=== PATIENT | female | born 1930 | race Caucasian/White ===

== ENCOUNTER 2019-02-11 15:57 | Inpatient (IN) | payer BC ==
--- NOTE | 2019-02-11 16:57 | PDOC ---
History of Present Illness - General Chief Complaint: Injury Stated Complaint: FALL Time Seen by Provider: 02/11/19 16:56 History Source: Patient Exam Limitations: No Limitations - History of Present Illness Initial Comments: 02/11/19 16:56 PCP: Dr. Babb Source: Pt and Daughter HPI: 88yo woman pmh HTN and arthritis (ambulates with cane) BIBEMS from home s/ p fall. Patient was found by son sleeping on a blanket on the floor beside her bed around 7AM. He changed her and moved her back to the bed where she slept a bit longer. Around 8:30/9 AM Son / Daughter found her to be "talking strange" with normal voice and pronunciation but frequently off topic. She also had difficulty moving and required help form her son to get up and ambulate to the bathroom. She is unable to say what is limiting her other than arthritis. She does not recall falling or how she ended up on the floor. Currently endorsing no complaints. Specifically, denies any pain, CP, SOB, palpitations, weakness, numbness, tingling, fevers, chills, loss of appetite, changes in bowel habits, urinary symptoms, headache / dizziness / lightheadedness / nausea / vomiting. No recent illnesses, immobilizations, hormonal medications, or sick contacts. All: KNDA Meds: Alieve, Chlorthalidone 50-25, Amlodipine bestyslate 5mg, Lisinopril 40mg, Famotidine 40mg PMH: as above PSH: denies SHx: no smoking / ETOH / Illicits Past History - Travel Traveled outside of the country in the last 30 days: No Close contact w/someone who was outside of country & ill: No - Past Medical History Allergies/Adverse Reactions: Allergies Allergy/AdvReac Type Severity Reaction Status Date / Time No Known Allergies Allergy Verified 07/30/15 17:56 Home Medications: Ambulatory Orders Amlodipine Besylate 5 mg PO DAILY 02/11/19 Famotidine [Pepcid] 40 mg PO DAILY 02/11/19 Lisinopril [Zestril] 40 mg PO DAILY 02/11/19 HTN: Yes - Suicide/Smoking/Psychosocial Hx Smoking Status: No Smoking History: Never smoked Number of Cigarettes Smoked Daily: 0 Hx Alcohol Use: No Review of Systems - Review of Systems Able to Perform ROS?: Yes Is the patient limited Luxem[place]ish proficient: Yes Constitutional: No: Chills, Diaphoresis, Fever, Weakness HEENTM: No: Blurred Vision, Double Vision, Nose Pain, Nose Congestion, Throat Pain, Throat Swelling, Mouth Pain, Difficulty Swallowing Respiratory: Yes: Cough. No: Shortness of Breath, Wheezing Cardiac (ROS): No: Chest Pain, Edema, Irregular Heart Rate, Palpitations, Chest Tightness ABD/GI: No: Constipated, Diarrhea, Nausea, Poor Appetite, Poor Fluid Intake, Vomiting : No: Burning, Dysuria, Discharge, Hematuria Musculoskeletal: No: Back Pain, Joint Pain, Muscle Pain, Muscle Weakness, Neck Pain Integumentary: No: Bruising, Change in Color, Erythema, Rash, Sweating Neurological: No: Headache, Numbness, Tingling, Weakness Psychiatric: No: Anxiety, Depression, Stressors, Emotional Problems, Mood Swings Endocrine: No: Excessive Sweating, Increased Thirst, Increased Urine, Change in Weight Hematologic/Lymphatic: No: Anemia, Blood Clots, Easy Bleeding, Easy Bruising All Other Systems: Reviewed and Negative *Physical Exam - Physical Exam Comments: 02/11/19 17:45 Gen: Elderly woman, appears stated age, no acute distress, conversant and cooperative HEENT: NCAT, EOMI, trachea midline, MMM, poor dentition CV: RRR, nl s1/s2, no murmurs appreciated Pulm: CTA in right lung, left lung field entirely diminished when compared to right, normal WOB, no wheezes / rales / rhonchi Abd: Soft, nontender, nondistended MSK: No tenderness in extremities, normal ROM, normal strength Ext: WWP, no clubbing / cyanosis / edema Pulses: 2+ radial and PT Neuro: Normal strength, sensation to touch present throughout, CN 2-12 intact, normal speech, normal recall, MAEE Heart Score/ECG Review - History History: Slightly suspicious - Electrocardiogram EKG: Non specific repolarization disturbance - Age Age: >/= 65 - Risk Factors Risk Factors Heart Score: Yes Hx Hypertension Based on the list above the patient has:: 1-2 risk factors - Troponin Troponin: </= normal limit - Score Heart Score - Total: 4 - ECG Intrepretation Rhythm: Regular Rhythm Comment:: 02/11/19 18:36 some PVCs and PACs - [place]: Left [place] Deviation - P and LA Delta Wave(s) Present: No WPW: No - QRS Increased Voltage: Precordial Leads - ST and T Non Specific ST-T Wave changes: No Flattened T Waves: No Prolonged Q-T Interval: No - ECG Impressions Normal ECG: No Non-specific ST Elevation: No Ischemic Changes: No Bradycardia: No Torsades sheri Pointes: No WPW: No ED Treatment Course - LABORATORY CBC & Chemistry Diagram: 02/11/19 18:17 02/11/19 18:17 Medical Decision Making - Medical Decision Making 02/11/19 18:04 88yo woman pmh HTN and arthritis (ambulates with cane) BIBEMS from home s/p fall with no focal complaints. History notable for unwitnessed overnight fall with subsequent development of tangential / inappropriate responses and difficulty with ambulation beyond baseline arthritic pains and cane. Exam largely unremarkable except for inability to ambulated with unclear etiology. Concerning for syncope, trauma. DDX includes ACS, bleed, CVA vs TIA, arrhythmia , occult infection, seizure. HEART Score 4 -NCHCT -EKG, CXR -CBC, CMP, Cardiac Profile, UA 02/11/19 18:38 -EKG with LVH and LAD, QRS widening, no priors in EMR, some PVCs and PACs 02/11/19 19:42 -Mild leukocytosis 11.5 -Nl H&H, no anemia -UTI on UA, patient denies symptoms, no suprapubic tenderness 02/11/19 20:31 -Lab called, pt with Troponin of 17 -Repeat EKG unchanged from prior today - deep inverted T waves, could be related to LVH -Patient remains asymptomatic without CP/SOB/N/V or any other complaints -ASA ordered -1g Rocephin for UTI Dispo: Admit Tele 02/11/19 21:23 -Spoke with Dr. Alston, Cardiology. Advised to give heparin if we suspect ACS, not give Heparin if we don't suspect ACS. -Patient reassessed, remains asymptomatic, a bit more demented as the night progressed 02/11/19 23:19 -NSTEMI, Repeat troponin 15 -Lovenox 80mg SQ ordered *DC/Admit/Observation/Transfer Diagnosis at time of Disposition: Elevated troponin, NSTEMI, initial episode of care UTI (urinary tract infection) Qualifiers: Urinary tract infection type: site unspecified Hematuria presence: without hematuria Qualified Code(s): N39.0 - Urinary tract infection, site not specified - Discharge Dispostion Condition at time of disposition: Guarded Decision to Admit order: Yes - Referrals Referrals: Norbert Babb MD [Primary Care Provider] - - Patient Instructions - Post Discharge Activity
--- NOTE | 2019-02-11 17:21 | PDOC ---
Attending Attestation - Resident Resident Name: Mauricio Clark - ED Attending Attestation I have performed the following: I have examined & evaluated the patient, The case was reviewed & discussed with the resident, I agree w/resident's findings & plan, Exceptions are as noted - HPI HPI: 02/11/19 17:19 88 yo female found on the floor by her son at 7 AM today. He found her laying on top of a blanket on the floor. The patient doesn't recall any events leading to her being on the floor - Physicial Exam PE: 02/11/19 21:21 nourished, well-developed conversant, 88-year-old female in no acute distress. Head no scalp lacerations or hematomas appreciated. Dry mucous membranes Neck no cervical midline tenderness. Lungs no crackles or wheezing CVS regular rate and rhythm S1, S2 Abdomen nontender. Skin warm and dry extremities no deformities, she was alert and conversant. She knows her name and her birthdate. However, she doesn't know the year, has complained of chronic lower extremity weakness and uses a walker or cane for ambulation - Medical Decision Making 02/11/19 21:23 88 female found on the floor by her son this morning the pt states that she remembers sitting on the floor at midnight because she was too weak to get into her bed. Patient is not the best historian but has no specific complaints at this time 02/11/19 21:24 head was negative for any acute intracranial pathology. Chest x-ray did not show any infiltrates UA does show urinary tract infection and she was started on antibiotics ekg showed nsr with Deep inverted T waves, V4, V5 and V6 with LVH and some PVCs troponin was markedly elevated at 17 and her CPK was above 2000 We will repeat her troponin now 02/11/19 21:26 pmh HTN,arthritis Dr Javier consulted for cardiology imp fall,nstemi,uti admitted to telemetry ADMIT TO TELE 02/11/19 23:19
[2019-02-11 19:07] LABS: BASO % 0.4 % (0-2.0); EOS % 0.1 % (0-4.5); HEMATOCRIT 41.8 % (32.4-45.2); MCH 31.1 pg (25.7-33.7); MCHC 33.6 g/dl (32.0-36.0); MEAN CELL VOLUME 92.6 fl (80-96); MEAN PLT VOLUME 8.3 fl (7.5-11.1); MONO % 7.8 % (3.8-10.2); NEUT % 81.7 % (42.8-82.8); PLATELET COUNT 250 K/MM3 (134-434); RBC 4.52 M/mm3 (3.60-5.2); RDW 13.5 % (11.6-15.6); WHITE BLOOD COUNT 11.2 K/mm3 (4.0-10.0)
[2019-02-11 19:10] LABS: EPI CELLS 3.8 /HPF (0-5/HPF); HYALINE CASTS 2 /lpf (0-8); URINE APPEARANCE CLOUDY; URINE BACTERIA 2322.2 /hpf (NEGATIVE); URINE BILIRUBIN NEGATIVE (NEGATIVE); URINE COLOR YELLOW; URINE GLUCOSE (UA) NEGATIVE (NEGATIVE); URINE KETONE TRACE (NEGATIVE); URINE LEUK ESTERASE 1+ (NEGATIVE); URINE NITRITE NEGATIVE (NEGATIVE); URINE PROTEIN 2+ (NEGATIVE); URINE RBC 2 /hpf (0-4); URINE UROBILINOGEN 0.2 mg/dL (0.2-1.0); URINE WBC 2 /hpf (0-5)
[2019-02-11 19:55] LABS: ALBUMIN 3.8 g/dl (3.4-5.0); BILIRUBIN,TOTAL 0.5 mg/dL (0.2-1); BLOOD UREA NITROGEN 21.2 mg/dL (7-18); CALCIUM 9.5 mg/dL (8.5-10.1); CREATININE 0.6 mg/dL (0.55-1.3); POTASSIUM 3.2 mmol/L (3.5-5.1); TOT PROT 6.4 g/dl (6.4-8.2)
[2019-02-11] MEDS ORDERED: ASPIRIN 81 MG CHEWABLE TABLETS PO ONE (20:28)
[2019-02-11] MEDS ORDERED: CEFTRIAXONE 1 GM in DEXTROSE 5%-WATER - 100 ML IVPB ONE (20:29)
[2019-02-11 20:38] VITALS: BMI 30.2
[2019-02-11] MEDS ORDERED: CEFTRIAXONE 1 GM/50 ML BAG ONE (20:48)
[2019-02-11] MEDS ORDERED: ASPIRIN 81 MG CHEWABLE TABLETS ONE (20:48)
[2019-02-11] MEDS ORDERED: SODIUM CHLORIDE 0.9% 500 ML INFUS.BAG IV ONE (21:04)
[2019-02-11] MEDS ORDERED: ENOXAPARIN NA (PORCINE) 80 MG/0.8 ML DISP.SYRIN SQ ONE ×2 (23:19→23:40)
--- NOTE | 2019-02-12 02:20 | HP ---
Admitting History and Physical - Primary Care Physician PCP: Norbert Babb - Admission Chief Complaint: Syncope, s/p Fall History of Present Illness: This is a 88 y/o woman from home. Who presents to the ED for syncope, s/p fall. Patient was found on the floor in her bedroom by her son, laying on a blanket. The son reported to the ED that she is confused- not at baseline. History Source: Family Member Limitations to Obtaining History: Clinical Condition - Past Medical History Cardiovascular: Yes: HTN Musculoskeletal: Yes: Osteoarthritis - Smoking History Smoking history: Never smoked Have you smoked in the past 12 months: No Aproximately how many cigarettes per day: 0 - Alcohol/Substance Use Hx Alcohol Use: No - Social History Usual Living Arrangement: Yes: With Child ADL: Family Assistance History of Recent Travel: No Home Medications - Allergies Allergies/Adverse Reactions: Allergies Allergy/AdvReac Type Severity Reaction Status Date / Time No Known Allergies Allergy Verified 07/30/15 17:56 - Home Medications Home Medications: Ambulatory Orders Amlodipine Besylate 5 mg PO DAILY 02/11/19 Famotidine [Pepcid] 40 mg PO DAILY 02/11/19 Lisinopril [Zestril] 40 mg PO DAILY 02/11/19 Family Disease History - Family Disease History Family History: Unable to Obtain Review of Systems Unable to obtain ROS, reason: Clinical Condition Physical Examination Vital Signs: Vital Signs Temperature 98.2 F 02/11/19 16:00 Pulse Rate 72 02/11/19 16:00 Respiratory Rate 18 02/11/19 16:00 Blood Pressure 146/54 L 02/11/19 16:00 O2 Sat by Pulse Oximetry (%) 100 02/11/19 16:00 Constitutional: Yes: No Distress, Calm, Other (Alert to name, month and president) Eyes: Yes: WNL, Conjunctiva Clear, EOM Intact, PERRL HENT: Yes: WNL, Atraumatic, Normocephalic Neck: Yes: WNL, Supple, Trachea Midline Cardiovascular: Yes: Regular Rate and Rhythm, S1, S2 Respiratory: Yes: WNL, Regular, CTA Bilaterally Gastrointestinal: Yes: WNL, Normal Bowel Sounds, Soft Renal/: Yes: Incontinence Breast(s): Yes: WNL Musculoskeletal: Yes: WNL Extremities: Yes: WNL Edema: No Peripheral Pulses WNL: Yes Neurological: Yes: Alert, Confusion, Cran Nerves II-XII Intact ...Motor Strength: WNL Psychiatric: Yes: WNL, Alert Labs: CBC, BMP 02/11/19 18:17 02/11/19 18:17 Laboratory Results - last 24 hr 02/11/19 02/11/19 02/11/19 18:13 18:17 18:17 WBC 11.2 H RBC 4.52 Hgb 14.0 Hct 41.8 MCV 92.6 MCH 31.1 MCHC 33.6 RDW 13.5 Plt Count 250 MPV 8.3 Absolute Neuts (auto) 9.2 H Neutrophils % 81.7 Lymphocytes % 10.0 Monocytes % 7.8 Eosinophils % 0.1 Basophils % 0.4 Nucleated RBC % 0 Sodium 136 Potassium 3.2 L Chloride 99 Carbon Dioxide 28 Anion Gap 9 BUN 21.2 H Creatinine 0.6 Est GFR (CKD-EPI)AfAm 94.32 Est GFR (CKD-EPI)NonAf 81.38 Random Glucose 99 Calcium 9.5 Total Bilirubin 0.5 AST 152 H ALT 42 Alkaline Phosphatase 78 Creatine Kinase 2593 H Creatine Kinase Index 1.6 CK-MB (CK-2) 42.0 H Troponin I 17.00 H* Total Protein 6.4 Albumin 3.8 Urine Color Yellow Urine Appearance Cloudy Urine pH 6.0 Ur Specific [place] 1.019 Urine Protein 2+ H Urine Glucose (UA) Negative Urine Ketones Trace H Urine Blood 1+ H Urine Nitrite Negative Urine Bilirubin Negative Urine Urobilinogen 0.2 Ur Leukocyte Esterase 1+ H Urine WBC (Auto) 2 Urine RBC (Auto) 2 Urine Casts (Auto) 2 U Epithel Cells (Auto) 3.8 Urine Bacteria (Auto) 2322.2 02/11/19 02/11/19 18:17 22:00 WBC RBC Hgb Hct MCV MCH MCHC RDW Plt Count MPV Absolute Neuts (auto) Neutrophils % Lymphocytes % Monocytes % Eosinophils % Basophils % Nucleated RBC % Sodium Potassium Chloride Carbon Dioxide Anion Gap BUN Creatinine Est GFR (CKD-EPI)AfAm Est GFR (CKD-EPI)NonAf Random Glucose Calcium Total Bilirubin AST ALT Alkaline Phosphatase Creatine Kinase 2553 H Creatine Kinase Index Cancelled 1.2 CK-MB (CK-2) Cancelled 32.6 H Troponin I 15.30 H* Total Protein Albumin Urine Color Urine Appearance Urine pH Ur Specific [place] Urine Protein Urine Glucose (UA) Urine Ketones Urine Blood Urine Nitrite Urine Bilirubin Urine Urobilinogen Ur Leukocyte Esterase Urine WBC (Auto) Urine RBC (Auto) Urine Casts (Auto) U Epithel Cells (Auto) Urine Bacteria (Auto) Intake & Output 02/09/19 02/10/19 02/11/19 02/12/19 23:59 23:59 23:59 23:59 Weight 74.843 kg Current Medications Generic Name Dose Route Start Last Admin Trade Name Freq PRN Reason Stop Dose Admin Amlodipine Besylate 5 mg 02/12/19 10:00 Norvasc - PO DAILY JUNIE Aspirin 81 mg 02/12/19 10:00 Asa - PO DAILY JUNIE Enoxaparin Sodium 75 mg 02/12/19 12:00 Lovenox - SQ BID JUNIE Ceftriaxone Sodium 1 gm/ 50 mls @ 100 mls/hr 02/12/19 10:00 Dextrose IVPB DAILY JUNIE Protocol Sodium Chloride 1,000 mls @ 60 mls/hr 02/12/19 05:00 Normal Saline - IV ASDIR JUNIE Lisinopril 40 mg 02/12/19 10:00 Prinivil PO DAILY JUNIE Ranitidine HCl 300 mg 02/12/19 10:00 Zantac - PO DAILY JUNIE Imaging - Results Chest X-ray: Report Reviewed, Image Reviewed Cat Scan: Report Reviewed, Image Reviewed EKG: Image Reviewed Problem List - Problems (1) NSTEMI (non-ST elevated myocardial infarction) Assessment/Plan: Cardiac monitoring EKGs reviewed- SR with PVCs change compared to prior study Troponins x2 elevated but trending down 17~15, will continue to trend Chest Xray reviewed Cardiology consulted by ED resident Lovenox 80mg SQ given in ED Will conitinue Lovenox weight based Echo Lipid Panel EKG in am Code(s): I21.4 - NON-ST ELEVATION (NSTEMI) MYOCARDIAL INFARCTION (2) Elevated troponin Assessment/Plan: see above Code(s): R74.8 - ABNORMAL LEVELS OF OTHER SERUM ENZYMES (3) UTI (urinary tract infection) Assessment/Plan: UA- +1 leukocyte esterase, Bacteria 2322 Urine Culture-pending Rocephin started in ED, will continue Patient is confused not at baseline per patient's family- likely due to UTI Monitor CBC, BMP Monitor vitals Code(s): N39.0 - URINARY TRACT INFECTION, SITE NOT SPECIFIED Qualifiers: Urinary tract infection type: site unspecified Hematuria presence: without hematuria Qualified Code(s): N39.0 - Urinary tract infection, site not specified (4) Fall at home Assessment/Plan: Unwitnessed Head CT- reviewed Tylenol prn Fall Precautions Consider PT eval- gait conditioning Code(s): W19.XXXA - UNSPECIFIED FALL, INITIAL ENCOUNTER; Y92.009 - UNSP PLACE IN UNSP NON-INSTITUT (PRIVATE) RESIDENCE PLACE Qualifiers: Encounter type: subsequent encounter Qualified Code(s): W19.XXXD - Unspecified fall, subsequent encounter; Y92.009 - Unspecified place in unspecified non-institutional (private) residence as the place of occurrence of the external cause (5) Rhabdomyolysis Assessment/Plan: CK 2593 NS bolus given in ED Will trend CK Continue gentle iVF concern for fluid overload Cardiac monitoring Appreciate Cardiology input Code(s): M62.82 - RHABDOMYOLYSIS (6) HTN (hypertension) Assessment/Plan: stable Continue home meds Monitor renal function Code(s): I10 - ESSENTIAL (PRIMARY) HYPERTENSION Qualifiers: Hypertension type: essential hypertension Qualified Code(s): I10 - Essential (primary) hypertension (7) Osteoarthritis Assessment/Plan: stable Tylenol prn Code(s): M19.90 - UNSPECIFIED OSTEOARTHRITIS, UNSPECIFIED SITE Assessment/Plan This is a 88 y/o woman with a PMHx of HTN, OA. Admitted for NSTEMI, Rhabdomyolysis Acute Metabolic Encephalopathy, UTI for further evaluation of their emergent condition. Plan: See Problem List FEN NS@60ml/hr Repleted K, continue to monitor lytes prn Low Na Diet DVT ppx OOB SCDs Continue Lovenox SQ (for NSTEMI) Dispo: Requires Inpatient Care Visit type - Emergency Visit Emergency Visit: Yes ED Registration Date: 02/11/19 Care time: The patient presented to the Emergency Department on the above date and was hospitalized for further evaluation of their emergent condition. - New Patient This patient is new to me today: Yes Date on this admission: 02/11/19 - Critical Care Critical Care patient: No
[2019-02-12] MEDS ORDERED: POTASSIUM CHLORIDE TABS 20 MEQ TABLET.ER (FP) PO ONE ×2 (04:56→05:16)
[2019-02-12] MEDS: SODIUM CHLORIDE 1,000 ML IV SCH ×2 (05:25→17:19)
[2019-02-12 06:55] LABS: BASO % 0.3 % (0-2.0); EOS % 0.2 % (0-4.5); HEMATOCRIT 40.4 % (32.4-45.2); LYMPH % 11.6 % (8-40); MCH 31.7 pg (25.7-33.7); MCHC 34.5 g/dl (32.0-36.0); MEAN CELL VOLUME 91.8 fl (80-96); MEAN PLT VOLUME 8.5 fl (7.5-11.1); NEUT % 79.9 % (42.8-82.8); PLATELET COUNT 240 K/MM3 (134-434); RBC 4.41 M/mm3 (3.60-5.2); RDW 13.5 % (11.6-15.6); WHITE BLOOD COUNT 9.9 K/mm3 (4.0-10.0)
[2019-02-12 07:32] LABS: BLOOD UREA NITROGEN 17.9 mg/dL (7-18); CREATININE 0.5 mg/dL (0.55-1.3); MAGNESIUM 1.4 mg/dL (1.8-2.4); PHOSPHOROUS 2.6 mg/dL (2.5-4.9); POTASSIUM 3.3 mmol/L (3.5-5.1)
[2019-02-12] MEDS ORDERED: CEFTRIAXONE 1 GM in DEXTROSE 5%-WATER - 50 ML IVPB SCH (10:00)
[2019-02-12] MEDS ORDERED: ENOXAPARIN NA (PORCINE) 80 MG/0.8 ML DISP.SYRIN SQ ONE (10:47)
[2019-02-12] MEDS ORDERED: ASPIRIN 81 MG CHEWABLE TABLETS ONE (10:47)
[2019-02-12] MEDS ORDERED: amLODIPine BESYLATE 5 MG TABLET (FP) ONE (10:47)
[2019-02-12] MEDS ORDERED: LISINOPRIL 20 MG TABLET (FP) ONE (10:47)
[2019-02-12] MEDS ORDERED: CEFTRIAXONE 1 GM/50 ML BAG ONE (10:47)
[2019-02-12] MEDS: amLODIPine BESYLATE 5 MG TABLET (FP) PO SCH (11:06)
[2019-02-12] MEDS: LISINOPRIL 20 MG TABLET (FP) PO SCH (11:06)
[2019-02-12] MEDS: ASPIRIN 81 MG CHEWABLE TABLETS PO SCH (11:06)
[2019-02-12] MEDS: RANITIDINE HCL 150 MG TABLET (FP) PO SCH (11:27)
[2019-02-12] MEDS: ENOXAPARIN NA (PORCINE) 80 MG/0.8 ML DISP.SYRIN SQ SCH ×2 (11:30→21:21)
--- NOTE | 2019-02-12 12:57 | PN ---
Progress Note (short form) - Note Progress Note: no chest pain No SOB pt examined in ER Vital Signs - 24 hr 02/11/19 02/11/19 16:00 23:00 Temperature 98.2 F Pulse Rate 72 Pulse Rate [ 79 Radial] Respiratory 18 Rate Blood Pressure 146/54 L Blood Pressure 150/65 [Left Arm] O2 Sat by Pulse 100 Oximetry (%) Current Medications Generic Name Dose Route Start Last Admin Trade Name Freq PRN Reason Stop Dose Admin Amlodipine Besylate 5 mg 02/12/19 10:00 02/12/19 11:06 Norvasc - PO 5 mg DAILY JUNIE Administration Aspirin 81 mg 02/12/19 10:00 02/12/19 11:06 Asa - PO 81 mg DAILY JUNIE Administration Enoxaparin Sodium 75 mg 02/12/19 12:00 02/12/19 11:30 Lovenox - SQ 75 mg BID JUNIE Administration Ceftriaxone Sodium 1 gm/ 50 mls @ 100 mls/hr 02/12/19 10:00 02/12/19 11:06 Dextrose IVPB 100 mls/hr DAILY JUNIE Administration Protocol Sodium Chloride 1,000 mls @ 60 mls/hr 02/12/19 05:00 02/12/19 05:25 Normal Saline - IV 60 mls/hr ASDIR JUNIE Administration Lisinopril 40 mg 02/12/19 10:00 02/12/19 11:06 Prinivil PO 40 mg DAILY JUNIE Administration Ranitidine HCl 300 mg 02/12/19 10:00 02/12/19 11:27 Zantac - PO Not Given DAILY JUNIE Laboratory Results - last 24 hr 02/11/19 02/11/19 02/11/19 18:13 18:17 18:17 WBC 11.2 H RBC 4.52 Hgb 14.0 Hct 41.8 MCV 92.6 MCH 31.1 MCHC 33.6 RDW 13.5 Plt Count 250 MPV 8.3 Absolute Neuts (auto) 9.2 H Neutrophils % 81.7 Lymphocytes % 10.0 Monocytes % 7.8 Eosinophils % 0.1 Basophils % 0.4 Nucleated RBC % 0 Sodium 136 Potassium 3.2 L Chloride 99 Carbon Dioxide 28 Anion Gap 9 BUN 21.2 H Creatinine 0.6 Est GFR (CKD-EPI)AfAm 94.32 Est GFR (CKD-EPI)NonAf 81.38 Random Glucose 99 Calcium 9.5 Phosphorus Magnesium Total Bilirubin 0.5 AST 152 H ALT 42 Alkaline Phosphatase 78 Creatine Kinase 2593 H Creatine Kinase Index 1.6 CK-MB (CK-2) 42.0 H Troponin I 17.00 H* Total Protein 6.4 Albumin 3.8 Triglycerides Cholesterol Total LDL Cholesterol HDL Cholesterol TSH Urine Color Yellow Urine Appearance Cloudy Urine pH 6.0 Ur Specific [place] 1.019 Urine Protein 2+ H Urine Glucose (UA) Negative Urine Ketones Trace H Urine Blood 1+ H Urine Nitrite Negative Urine Bilirubin Negative Urine Urobilinogen 0.2 Ur Leukocyte Esterase 1+ H Urine WBC (Auto) 2 Urine RBC (Auto) 2 Urine Casts (Auto) 2 U Epithel Cells (Auto) 3.8 Urine Bacteria (Auto) 2322.2 02/11/19 02/11/19 02/12/19 18:17 22:00 03:54 WBC RBC Hgb Hct MCV MCH MCHC RDW Plt Count MPV Absolute Neuts (auto) Neutrophils % Lymphocytes % Monocytes % Eosinophils % Basophils % Nucleated RBC % Sodium Potassium Chloride Carbon Dioxide Anion Gap BUN Creatinine Est GFR (CKD-EPI)AfAm Est GFR (CKD-EPI)NonAf Random Glucose Calcium Phosphorus Magnesium Total Bilirubin AST ALT Alkaline Phosphatase Creatine Kinase 2553 H Cancelled Creatine Kinase Index Cancelled 1.2 CK-MB (CK-2) Cancelled 32.6 H Troponin I 15.30 H* Cancelled Total Protein Albumin Triglycerides Cholesterol Total LDL Cholesterol HDL Cholesterol TSH Urine Color Urine Appearance Urine pH Ur Specific [place] Urine Protein Urine Glucose (UA) Urine Ketones Urine Blood Urine Nitrite Urine Bilirubin Urine Urobilinogen Ur Leukocyte Esterase Urine WBC (Auto) Urine RBC (Auto) Urine Casts (Auto) U Epithel Cells (Auto) Urine Bacteria (Auto) 02/12/19 02/12/19 06:00 06:00 WBC 9.9 RBC 4.41 Hgb 14.0 Hct 40.4 MCV 91.8 MCH 31.7 MCHC 34.5 RDW 13.5 Plt Count 240 MPV 8.5 Absolute Neuts (auto) 7.9 Neutrophils % 79.9 Lymphocytes % 11.6 Monocytes % 8.0 Eosinophils % 0.2 D Basophils % 0.3 Nucleated RBC % 0 Sodium 136 Potassium 3.3 L Chloride 99 Carbon Dioxide 28 Anion Gap 9 BUN 17.9 Creatinine 0.5 L Est GFR (CKD-EPI)AfAm 100.15 Est GFR (CKD-EPI)NonAf 86.41 Random Glucose 94 Calcium 9.0 Phosphorus 2.6 Magnesium 1.4 L Total Bilirubin AST ALT Alkaline Phosphatase Creatine Kinase 2266 H Creatine Kinase Index 1.0 CK-MB (CK-2) 24.3 H Troponin I 9.75 H* Total Protein Albumin Triglycerides 134 Cholesterol 170 Total LDL Cholesterol 106 H HDL Cholesterol 39 L TSH 1.65 Urine Color Urine Appearance Urine pH Ur Specific [place] Urine Protein Urine Glucose (UA) Urine Ketones Urine Blood Urine Nitrite Urine Bilirubin Urine Urobilinogen Ur Leukocyte Esterase Urine WBC (Auto) Urine RBC (Auto) Urine Casts (Auto) U Epithel Cells (Auto) Urine Bacteria (Auto) S1 S2 Irregular Lungs decreased Abd- soft, NT No edema PLAN IV antibiotics for UTI urine cultures not done Iv fluids Tele monitoring cardiology eval Cardiac enzymes trending down On Lovenox full dose Echo Problem List - Problems (1) Dementia Code(s): F03.90 - UNSPECIFIED DEMENTIA WITHOUT BEHAVIORAL DISTURBANCE (2) Elevated troponin Code(s): R74.8 - ABNORMAL LEVELS OF OTHER SERUM ENZYMES (3) Fall at home Code(s): W19.XXXA - UNSPECIFIED FALL, INITIAL ENCOUNTER; Y92.009 - UNSP PLACE IN UNSP NON-INSTITUT (PRIVATE) RESIDENCE PLACE Qualifiers: Encounter type: subsequent encounter Qualified Code(s): W19.XXXD - Unspecified fall, subsequent encounter; Y92.009 - Unspecified place in unspecified non-institutional (private) residence as the place of occurrence of the external cause (4) HTN (hypertension) Code(s): I10 - ESSENTIAL (PRIMARY) HYPERTENSION Qualifiers: Hypertension type: essential hypertension Qualified Code(s): I10 - Essential (primary) hypertension (5) Hypercholesterolemia Code(s): E78.00 - PURE HYPERCHOLESTEROLEMIA, UNSPECIFIED (6) NSTEMI (non-ST elevated myocardial infarction) Code(s): I21.4 - NON-ST ELEVATION (NSTEMI) MYOCARDIAL INFARCTION
[2019-02-12] MEDS ORDERED: CEFTRIAXONE 1,000 MG in DEXTROSE 5%-WATER - 50 ML IVPB SCH ×2 (13:00→13:40)
--- NOTE | 2019-02-12 13:03 | EKG ---
Test Reason : Blood Pressure : / mmHG Vent. Rate : 072 BPM Atrial Rate : 072 BPM P-R Int : 164 ms QRS Dur : 132 ms QT Int : 480 ms P-R-T Axes : 066 -56 269 degrees QTc Int : 525 ms SINUS RHYTHM WITH PREMATURE SUPRAVENTRICULAR COMPLEXES LEFT AXIS DEVIATION LEFT VENTRICULAR HYPERTROPHY WITH QRS WIDENING AND REPOLARIZATION ABNORMALITY ABNORMAL ECG WHEN COMPARED WITH ECG OF 11-FEB-2019 17:55, PREMATURE VENTRICULAR COMPLEXES ARE NO LONGER PRESENT Confirmed by MD Dilma, Mainor ([id number]) on 02/12/2019 1:02:44 PM Referred By: Confirmed By:Mainor Perera MD
--- NOTE | 2019-02-12 13:05 | EKG ---
Test Reason : Blood Pressure : / mmHG Vent. Rate : 075 BPM Atrial Rate : 075 BPM P-R Int : 166 ms QRS Dur : 132 ms QT Int : 470 ms P-R-T Axes : 060 -58 -81 degrees QTc Int : 524 ms SINUS RHYTHM WITH OCCASIONAL PREMATURE VENTRICULAR COMPLEXES AND PREMATURE ATRIAL COMPLEXES LEFT AXIS DEVIATION LEFT VENTRICULAR HYPERTROPHY WITH QRS WIDENING AND REPOLARIZATION ABNORMALITY ABNORMAL ECG MARKED T WAVE ABNORMALITY, CONSIDER INFERIOR ISCHEMIA T WAVE ABNORMALITY, CONSIDER LATERAL ISCHEMIA Confirmed by MD Dilma, Mainor ([id number]) on 02/12/2019 1:05:41 PM Referred By: Confirmed By:Mainor Perera MD
--- NOTE | 2019-02-12 13:25 | ECHO ---
Version: 1 Name: BEL GUTIERREZ Exam: Adult Echocardiogram Study Date: 02/12/2019, 10:15 AM Age: 88 Years Doppler Measurements & Calculations MV E max jj: 83.9 cm/sec Med E/e': 21.1 MV A max jj: 127.3 cm/sec Med Peak E' Jj: 4.0 cm/sec MV E/A: 0.66 Lat E/e': 25.4 Lat Peak E' Jj: 3.3 cm/sec MR max P.5 mmHg Ao max P.3 mmHg LV V1 mean: 46.5 cm/sec Ao mean P.5 mmHg LV V1 mean P.25 mmHg Ao V2 max: 135.3 cm/sec AI P1/2t: 503.6 msec TR max jj: 585.0 cm/sec TR max P.9 mmHg Procedure A complete two-dimensional transthoracic echocardiogram was performed (2D, M-mode, Doppler and color flow Doppler). No M Mode measurements obtained. The study was technically difficult with many images bein g suboptimal in quality. Left Ventricle Ejection Fraction = 50%. E/A reversal consistent with but not diagnostic of poor LV compliance. Sept al motion is consistent with conduction abnormality. Right Ventricle The right ventricle is normal in size and function. Atria The left atrium is not well visualized. Right atrium not well visualized. Mitral Valve The mitral valve is not well visualized. There is trace mitral regurgitation. Tricuspid Valve The tricuspid valve is not well visualized. There is trace tricuspid regurgitation. There was insuff icient TR detected to calculate RV systolic pressure. Aortic Valve There is mild aortic valve thickening. Pulmonic Valve The pulmonic valve is not well visualized. Great Vessels The aortic root is not well visualized. Pericardium/Pleura There is no pericardial effusion. There is no pleural effusion. Summary Statements The study was technically difficult with many images being suboptimal in quality. Septal motion is consistent with conduction abnormality. Ejection Fraction = 50%. There is trace mitral regurgitation. There is trace tricuspid regurgitation. There was insufficient TR detected to calculate RV systolic pressure. There is mild aortic valve thickening. MD Blanco 02/12/2019, 12:24 PM Sade Ordering Physician: Collin Quevedo Referring Physician: COLLIN QUEVEDO Performed By: Josefa Kim
--- NOTE | 2019-02-12 14:02 | CON.CARD ---
Consult Consult Specialty:: Cardiology Referred by:: Hospitalist Reason for Consultation:: Cardiac evaluation - History of Present Illness Chief Complaint: S/P Fall ?LOC History of Present Illness: Patient is an 88 year old female with underlying history of HTN and osteoarthritis who presented after a fall found on the floor by her son. He put her back to bed and she fell asleep. She was found by her daughter a little later in the morning to be talking strange and having difficulty ambulating. She was brought into the hospital by ambulance. She is awake but is not able to give a history and does not recall earlier events. She denies chest pain, shortness of breath or palpitations. She denies fever or chills. She denies nausea, vomiting, diarrhea or abdominal pain. She denies headache or lightheadedness. She is awaiting echocardiography this morning. Of note troponin was elevated to 17 decreased to 15.3 and then 9.75. - History Source History Provided By: Medical Record Limitations to Obtaining History: Clinical Condition - Past Medical History Cardio/Vascular: Yes: HTN Musculoskeletal: Yes: Osteoarthritis - Alcohol/Substance Use Hx Alcohol Use: No - Smoking History Smoking history: Never smoked Have you smoked in the past 12 months: No Aproximately how many cigarettes per day: 0 - Social History ADL: Family Assistance History of Recent Travel: No Home Medications - Allergies Allergies/Adverse Reactions: Allergies Allergy/AdvReac Type Severity Reaction Status Date / Time No Known Allergies Allergy Verified 07/30/15 17:56 - Home Medications Home Medications: Ambulatory Orders Amlodipine Besylate 5 mg PO DAILY 02/11/19 Famotidine [Pepcid] 40 mg PO DAILY 02/11/19 Lisinopril [Zestril] 40 mg PO DAILY 02/11/19 Family Disease History - Family Disease History Family History: Unable to Obtain Review of Systems Unable to obtain ROS, reason: Unable to obtain fully - Review of Systems Cardiovascular: denies: Chest Pain, Palpitations, Shortness of Breath Gastrointestinal: denies: Abdominal Pain, Diarrhea, Melena, Nausea, Rectal Bleeding, Vomiting Neurological: denies: Dizziness, Headache, Seizure Vital Signs: Vital Signs Temperature 98.2 F 02/11/19 16:00 Pulse Rate 79 02/11/19 23:00 Respiratory Rate 18 02/11/19 16:00 Blood Pressure 150/65 02/11/19 23:00 O2 Sat by Pulse Oximetry (%) 100 02/11/19 16:00 Neck: Yes: Supple Respiratory: Yes: Diminished Gastrointestinal: Yes: Normal Bowel Sounds, Soft. No: Tenderness Cardiovascular: Yes: Regular Rate and Rhythm JVD: No PMI: Non-Displaced Heart Sounds: Yes: S1, S2 Murmur: Yes: Systolic Murmur, Grade 1 Edema: No - Other Data Labs, Other Data: CBC, BMP 02/12/19 06:00 02/12/19 06:00 Troponin, BNP 02/11/19 02/11/19 02/12/19 18:17 22:00 03:54 Troponin I 17.00 H* 15.30 H* Cancelled 02/12/19 06:00 Troponin I 9.75 H* Sinus rhythm with APC and VPC Echo: Report Reviewed Imaging - Results Chest X-ray: Report Reviewed (Unremarkable) Cat Scan: Report Reviewed (Head CT unremarkable) EKG: Report Reviewed Problem List - Problems (1) Dementia Code(s): F03.90 - UNSPECIFIED DEMENTIA WITHOUT BEHAVIORAL DISTURBANCE (2) Elevated troponin Code(s): R74.8 - ABNORMAL LEVELS OF OTHER SERUM ENZYMES (3) HTN (hypertension) Code(s): I10 - ESSENTIAL (PRIMARY) HYPERTENSION Qualifiers: Hypertension type: essential hypertension Qualified Code(s): I10 - Essential (primary) hypertension (4) NSTEMI (non-ST elevated myocardial infarction) Code(s): I21.4 - NON-ST ELEVATION (NSTEMI) MYOCARDIAL INFARCTION (5) Osteoarthritis Code(s): M19.90 - UNSPECIFIED OSTEOARTHRITIS, UNSPECIFIED SITE (6) UTI (urinary tract infection) Code(s): N39.0 - URINARY TRACT INFECTION, SITE NOT SPECIFIED Qualifiers: Urinary tract infection type: site unspecified Hematuria presence: without hematuria Qualified Code(s): N39.0 - Urinary tract infection, site not specified (7) Hypercholesterolemia Code(s): E78.00 - PURE HYPERCHOLESTEROLEMIA, UNSPECIFIED (8) Rhabdomyolysis Code(s): M62.82 - RHABDOMYOLYSIS Assessment/Plan 1. Elevated troponin suggests NSTEMI with underlying CAD 2. ? Syncope vs. mechanical fall 3. HTN 4. Organic brain/dementia 5. Osteoarthritis 6. Elevated CPK suggests rhabdomyolisis 7. Hypercholesterolemia 8. Probable UTI PLAN: 1. Trend troponin currently decreasing 2. Agree with Lovenox for now 3. Continue Prinivil and Amlodipine as tolerated 4. Add low dose beta natty and uptitrate 5. ASA 6. Statin therapy 7. Echocardiography report noted 8. In view of advanced age, conservative management recommended 9. Empiric antibiotic coverage 10. Hydration Further plans are to follow Krish Garcia MD
[2019-02-12] MEDS ORDERED: POTASSIUM CHLORIDE ORAL LIQUID 20 MEQ/15 ML PO ONE (17:00)
[2019-02-12] MEDS ORDERED: MAGNESIUM SULF 50% (8.12 MEQ/2 ML-1 GM VIAL) IVPB ONE (17:00)
[2019-02-12] MEDS: ATORVASTATIN CA 20 MG TABLET (FP) PO SCH (21:21)
[2019-02-13 06:18] LABS: MEAN PLT VOLUME 8.6 fl (7.5-11.1)
[2019-02-13 06:50] LABS: HEMATOCRIT 41.7 % (32.4-45.2); HEMOGLOBIN 14.4 GM/dL (10.7-15.3); MCH 31.7 pg (25.7-33.7); MCHC 34.5 g/dl (32.0-36.0); MEAN CELL VOLUME 91.7 fl (80-96); PLATELET COUNT 232 K/MM3 (134-434); RBC 4.55 M/mm3 (3.60-5.2); RDW 13.5 % (11.6-15.6)
[2019-02-13 06:51] LABS: ALBUMIN 3.6 g/dl (3.4-5.0); BILIRUBIN,TOTAL 0.6 mg/dL (0.2-1); CALCIUM 9.2 mg/dL (8.5-10.1); CREATININE 0.5 mg/dL (0.55-1.3); POTASSIUM 3.4 mmol/L (3.5-5.1); TOT PROT 6.4 g/dl (6.4-8.2)
[2019-02-13] MEDS: SODIUM CHLORIDE 1,000 ML IV SCH (06:57)
[2019-02-13] MEDS ORDERED: PT OWN MED DRAWER 7, Y5N ONE (10:01)
[2019-02-13] MEDS ORDERED: DEXTROSE 5%-WATER - 50 ML IVPB ONE (10:02)
[2019-02-13] MEDS ORDERED: cefTRIAXone SODIUM 1 GM VIAL ONE (10:02)
[2019-02-13] MEDS: METOPROLOL TARTRATE 25 MG TABLET (FP) PO SCH ×2 (10:15→21:59)
[2019-02-13] MEDS: ENOXAPARIN NA (PORCINE) 80 MG/0.8 ML DISP.SYRIN SQ SCH (10:15)
[2019-02-13] MEDS: LISINOPRIL 20 MG TABLET (FP) PO SCH (10:15)
[2019-02-13] MEDS: RANITIDINE HCL 150 MG TABLET (FP) PO SCH (10:16)
[2019-02-13] MEDS: ASPIRIN 81 MG CHEWABLE TABLETS PO SCH (10:16)
[2019-02-13] MEDS: amLODIPine BESYLATE 5 MG TABLET (FP) PO SCH (10:16)
[2019-02-13] MEDS: CEFTRIAXONE 1 GM in DEXTROSE 5%-WATER - 50 ML IVPB SCH (10:16)
--- NOTE | 2019-02-13 10:38 | PN ---
Progress Note, Physician History of Present Illness: Denies chest pain, dyspnea, near or true syncope or palpitations. Episodes of PAF with RVR. - Current Medication List Current Medications: Active Medications Amlodipine Besylate (Norvasc -) 5 mg PO DAILY [facility] Last Admin: 02/13/19 10:16 Dose: 5 mg Aspirin (Asa -) 81 mg PO DAILY [facility] Last Admin: 02/13/19 10:16 Dose: 81 mg Atorvastatin Calcium (Lipitor -) 20 mg PO HS [facility] Last Admin: 02/12/19 21:21 Dose: 20 mg Enoxaparin Sodium (Lovenox -) 75 mg SQ BID [facility] Last Admin: 02/13/19 10:15 Dose: 75 mg Sodium Chloride (Normal Saline -) 1,000 mls @ 60 mls/hr IV ASDIR [facility] Last Admin: 02/13/19 06:57 Dose: 60 mls/hr Ceftriaxone Sodium 1 gm/ (Dextrose) 50 mls @ 100 mls/hr IVPB DAILY@0800 [facility] Last Admin: 02/13/19 10:16 Dose: 100 mls/hr Lisinopril (Prinivil) 40 mg PO DAILY [facility] Last Admin: 02/13/19 10:15 Dose: 40 mg Metoprolol Tartrate (Lopressor -) 25 mg PO BID [facility] Last Admin: 02/13/19 10:15 Dose: 25 mg Ranitidine HCl (Zantac -) 300 mg PO DAILY [facility] Last Admin: 02/13/19 10:16 Dose: 300 mg - Objective Vital Signs: Vital Signs Temperature 98.1 F 02/13/19 05:41 Pulse Rate 88 02/13/19 05:41 Respiratory Rate 16 02/13/19 05:41 Blood Pressure 162/81 02/13/19 05:41 O2 Sat by Pulse Oximetry (%) 94 L 02/12/19 21:00 Constitutional: Yes: No Distress, Calm Neck: Yes: Supple Cardiovascular: Yes: Regular Rate and Rhythm Respiratory: Yes: Regular, Diminished, On Nasal O2 Gastrointestinal: Yes: Soft, Hypoactive Bowel Sounds Edema: No Labs: CBC, BMP 02/13/19 05:10 02/13/19 05:10 - ....Imaging EKG: Report Reviewed (Tele: PAF->SR) Problem List - Problems (1) Elevated troponin Code(s): R74.8 - ABNORMAL LEVELS OF OTHER SERUM ENZYMES (2) Fall at home Code(s): W19.XXXA - UNSPECIFIED FALL, INITIAL ENCOUNTER; Y92.009 - UNSP PLACE IN UNSP NON-INSTITUT (PRIVATE) RESIDENCE PLACE Qualifiers: Encounter type: subsequent encounter Qualified Code(s): W19.XXXD - Unspecified fall, subsequent encounter; Y92.009 - Unspecified place in unspecified non-institutional (private) residence as the place of occurrence of the external cause (3) HTN (hypertension) Code(s): I10 - ESSENTIAL (PRIMARY) HYPERTENSION Qualifiers: Hypertension type: essential hypertension Qualified Code(s): I10 - Essential (primary) hypertension (4) Hypercholesterolemia Code(s): E78.00 - PURE HYPERCHOLESTEROLEMIA, UNSPECIFIED (5) NSTEMI (non-ST elevated myocardial infarction) Code(s): I21.4 - NON-ST ELEVATION (NSTEMI) MYOCARDIAL INFARCTION Assessment/Plan 02/12/2019 Echo: Low normal LVEF 50%, tr MR, TR 1. CAD s/p NSTEMI 2. PAF with RVR-> SR 3. ? Syncope vs. mechanical fall 4. HTN 5. Organic brain/dementia 6. Hypercholesterolemia 7. Probable UTI 8. Microalbminuria PLAN: 1. Troponins currently decreasing 2. Agree with Lovenox with GI protection for now->Eliquis 5 bid 3. Continue Prinivil 40 qd and Amlodipine 5 qd as tolerated 4. Lopressor 25 bid and uptitrate 5. ASA 81 qd and Plavix 75 qd, d/c ASA once on Eliquis 6. Lipitor 20 qd 7. Echocardiography report noted, holter to confirm arrhythmia burden 8. In view of advanced age, conservative management recommended 9. Empiric antibiotic coverage 10. Hydration
[2019-02-13] MEDS: CLOPIDOGREL BISULFATE 75 MG TABLET (FP) PO SCH (12:07)
--- NOTE | 2019-02-13 12:59 | PN ---
Progress Note (short form) - Note Progress Note: no chest pain No SOB feels well seems less confused Vital Signs - 24 hr 02/12/19 02/12/19 02/12/19 14:49 16:04 16:18 Temperature 98.1 F 98.1 F Pulse Rate 91 H Pulse Rate [ 94 H Radial] Respiratory 16 16 16 Rate Blood Pressure 143/94 Blood Pressure 143/88 [Left Arm] O2 Sat by Pulse 95 94 L Oximetry (%) 02/12/19 02/12/19 02/12/19 18:00 21:00 21:18 Temperature 98.6 F 98.1 F Pulse Rate 88 105 H Pulse Rate [ Radial] Respiratory 18 16 16 Rate Blood Pressure 166/74 145/75 Blood Pressure [Left Arm] O2 Sat by Pulse 94 L Oximetry (%) 02/13/19 02/13/19 02/13/19 02:00 05:41 10:00 Temperature 98.1 F 98.1 F 98.3 F Pulse Rate 84 88 84 Pulse Rate [ Radial] Respiratory 16 16 17 Rate Blood Pressure 146/69 162/81 155/80 Blood Pressure [Left Arm] O2 Sat by Pulse Oximetry (%) Current Medications Generic Name Dose Route Start Last Admin Trade Name Freq PRN Reason Stop Dose Admin Amlodipine Besylate 5 mg 02/12/19 10:00 02/13/19 10:16 Norvasc - PO 5 mg DAILY JUNIE Administration Aspirin 81 mg 02/12/19 10:00 02/13/19 10:16 Asa - PO 81 mg DAILY JUNIE Administration Atorvastatin Calcium 20 mg 02/12/19 22:00 02/12/19 21:21 Lipitor - PO 20 mg HS JUNIE Administration Clopidogrel Bisulfate 75 mg 02/13/19 11:00 02/13/19 12:07 Plavix - PO 75 mg DAILY JUNIE Administration Enoxaparin Sodium 75 mg 02/12/19 12:00 02/13/19 10:15 Lovenox - SQ 75 mg BID JUNIE Administration Sodium Chloride 1,000 mls @ 60 mls/hr 02/12/19 05:00 02/13/19 06:57 Normal Saline - IV 60 mls/hr ASDIR JUNIE Administration Ceftriaxone Sodium 1 gm/ 50 mls @ 100 mls/hr 02/12/19 13:41 02/13/19 10:16 Dextrose IVPB 100 mls/hr DAILY@0800 JUNIE Administration Lisinopril 40 mg 02/12/19 10:00 02/13/19 10:15 Prinivil PO 40 mg DAILY JUNIE Administration Metoprolol Tartrate 25 mg 02/13/19 10:00 02/13/19 10:15 Lopressor - PO 25 mg BID JUNIE Administration Potassium Chloride 40 meq 02/13/19 13:00 K-Dur - PO 02/13/19 13:01 ONCE ONE Ranitidine HCl 300 mg 02/12/19 10:00 02/13/19 10:16 Zantac - PO 300 mg DAILY JUNIE Administration Laboratory Results - last 24 hr 02/13/19 02/13/19 05:10 05:10 WBC 7.0 RBC 4.55 Hgb 14.4 Hct 41.7 MCV 91.7 MCH 31.7 MCHC 34.5 RDW 13.5 Plt Count 232 MPV 8.6 Sodium 136 Potassium 3.4 L Chloride 101 Carbon Dioxide 28 Anion Gap 8 BUN 15.0 Creatinine 0.5 L Est GFR (CKD-EPI)AfAm 100.15 Est GFR (CKD-EPI)NonAf 86.41 Random Glucose 97 Calcium 9.2 Total Bilirubin 0.6 AST 102 H ALT 47 Alkaline Phosphatase 75 Total Protein 6.4 Albumin 3.6 Triglycerides 168 H Cholesterol 177 Total LDL Cholesterol 121 H HDL Cholesterol 34 L TSH 1.90 S1 S2 Irregular Lungs decreased Abd- soft, NT No edema PLAN IV antibiotics for UTI urine cultures not done Iv fluids-->dc replace potassium Tele monitoring cardiology eval noted Cardiac enzymes trending down dc Lovenox agree with Eliquis and Plavix medical management for now Problem List - Problems (1) Dementia Code(s): F03.90 - UNSPECIFIED DEMENTIA WITHOUT BEHAVIORAL DISTURBANCE (2) Elevated troponin Code(s): R74.8 - ABNORMAL LEVELS OF OTHER SERUM ENZYMES (3) Fall at home Code(s): W19.XXXA - UNSPECIFIED FALL, INITIAL ENCOUNTER; Y92.009 - UNSP PLACE IN UNSP NON-INSTITUT (PRIVATE) RESIDENCE PLACE Qualifiers: Encounter type: subsequent encounter Qualified Code(s): W19.XXXD - Unspecified fall, subsequent encounter; Y92.009 - Unspecified place in unspecified non-institutional (private) residence as the place of occurrence of the external cause (4) HTN (hypertension) Code(s): I10 - ESSENTIAL (PRIMARY) HYPERTENSION Qualifiers: Hypertension type: essential hypertension Qualified Code(s): I10 - Essential (primary) hypertension (5) Hypercholesterolemia Code(s): E78.00 - PURE HYPERCHOLESTEROLEMIA, UNSPECIFIED (6) NSTEMI (non-ST elevated myocardial infarction) Code(s): I21.4 - NON-ST ELEVATION (NSTEMI) MYOCARDIAL INFARCTION
[2019-02-13] MEDS ORDERED: POTASSIUM CHLORIDE TABS 20 MEQ TABLET.ER (FP) PO ONE (13:00)
[2019-02-13] MEDS: ATORVASTATIN CA 20 MG TABLET (FP) PO SCH (21:59)
[2019-02-13] MEDS: APIXABAN 5 MG TABLET PO SCH (21:59)
[2019-02-14 06:25] LABS: HEMATOCRIT 41.6 % (32.4-45.2); HEMOGLOBIN 14.4 GM/dL (10.7-15.3); MCH 31.7 pg (25.7-33.7); MCHC 34.7 g/dl (32.0-36.0); MEAN CELL VOLUME 91.3 fl (80-96); MEAN PLT VOLUME 8.4 fl (7.5-11.1); PLATELET COUNT 247 K/MM3 (134-434); RBC 4.55 M/mm3 (3.60-5.2); RDW 13.4 % (11.6-15.6); WHITE BLOOD COUNT 7.5 K/mm3 (4.0-10.0)
[2019-02-14 07:09] LABS: BLOOD UREA NITROGEN 10.5 mg/dL (7-18); CALCIUM 9.6 mg/dL (8.5-10.1); CREATININE 0.6 mg/dL (0.55-1.3); POTASSIUM 3.8 mmol/L (3.5-5.1)
[2019-02-14] MEDS: CEFTRIAXONE 1 GM in DEXTROSE 5%-WATER - 50 ML IVPB SCH (09:00)
[2019-02-14] MEDS ORDERED: cefTRIAXone SODIUM 1 GM VIAL ONE (09:28)
[2019-02-14] MEDS ORDERED: DEXTROSE 5%-WATER - 50 ML IVPB ONE (09:29)
[2019-02-14] MEDS: CLOPIDOGREL BISULFATE 75 MG TABLET (FP) PO SCH (09:44)
[2019-02-14] MEDS: amLODIPine BESYLATE 10 MG TABLET (FP) PO SCH (09:44)
[2019-02-14] MEDS: LISINOPRIL 20 MG TABLET (FP) PO SCH (09:45)
[2019-02-14] MEDS: RANITIDINE HCL 150 MG TABLET (FP) PO SCH (09:45)
[2019-02-14] MEDS: APIXABAN 5 MG TABLET PO SCH ×2 (09:45→20:59)
[2019-02-14] MEDS: METOPROLOL TARTRATE 25 MG TABLET (FP) PO SCH (09:45)
--- NOTE | 2019-02-14 10:18 | PN ---
Progress Note, Physician History of Present Illness: Denies chest pain, dyspnea, near or true syncope or palpitations. Episodes of PAF with RVR. She reports chronic GLASS with inclines. - Current Medication List Current Medications: Active Medications Amlodipine Besylate (Norvasc -) 10 mg PO DAILY [facility] Last Admin: 02/14/19 09:44 Dose: 10 mg Apixaban (Eliquis -) 5 mg PO BID [facility] Last Admin: 02/14/19 09:45 Dose: 5 mg Atorvastatin Calcium (Lipitor -) 20 mg PO HS [facility] Last Admin: 02/13/19 21:59 Dose: 20 mg Clopidogrel Bisulfate (Plavix -) 75 mg PO DAILY [facility] Last Admin: 02/14/19 09:44 Dose: 75 mg Sodium Chloride (Normal Saline -) 1,000 mls @ 60 mls/hr IV ASDIR [facility] Last Admin: 02/13/19 06:57 Dose: 60 mls/hr Ceftriaxone Sodium 1 gm/ (Dextrose) 50 mls @ 100 mls/hr IVPB DAILY@0800 [facility] Last Admin: 02/14/19 09:00 Dose: 100 mls/hr Lisinopril (Prinivil) 40 mg PO DAILY [facility] Last Admin: 02/14/19 09:45 Dose: 40 mg Metoprolol Tartrate (Lopressor -) 25 mg PO BID [facility] Last Admin: 02/14/19 09:45 Dose: 25 mg Ranitidine HCl (Zantac -) 300 mg PO DAILY [facility] Last Admin: 02/14/19 09:45 Dose: 300 mg - Objective Vital Signs: Vital Signs Temperature 98.4 F 02/14/19 08:39 Pulse Rate 95 H 02/14/19 08:39 Respiratory Rate 20 02/14/19 08:39 Blood Pressure 161/85 02/14/19 08:39 O2 Sat by Pulse Oximetry (%) 96 02/13/19 20:21 Constitutional: Yes: No Distress, Calm Neck: Yes: Supple Cardiovascular: Yes: Regular Rate and Rhythm Respiratory: Yes: Regular, CTA Bilaterally Gastrointestinal: Yes: Normal Bowel Sounds, Soft Edema: No Labs: CBC, BMP 02/14/19 05:10 02/14/19 05:10 Problem List - Problems (1) Elevated troponin Code(s): R74.8 - ABNORMAL LEVELS OF OTHER SERUM ENZYMES (2) Fall at home Code(s): W19.XXXA - UNSPECIFIED FALL, INITIAL ENCOUNTER; Y92.009 - UNSP PLACE IN UNSP NON-INSTITUT (PRIVATE) RESIDENCE PLACE Qualifiers: Encounter type: subsequent encounter Qualified Code(s): W19.XXXD - Unspecified fall, subsequent encounter; Y92.009 - Unspecified place in unspecified non-institutional (private) residence as the place of occurrence of the external cause (3) HTN (hypertension) Code(s): I10 - ESSENTIAL (PRIMARY) HYPERTENSION Qualifiers: Hypertension type: essential hypertension Qualified Code(s): I10 - Essential (primary) hypertension (4) Hypercholesterolemia Code(s): E78.00 - PURE HYPERCHOLESTEROLEMIA, UNSPECIFIED (5) NSTEMI (non-ST elevated myocardial infarction) Code(s): I21.4 - NON-ST ELEVATION (NSTEMI) MYOCARDIAL INFARCTION Assessment/Plan 02/12/2019 Echo: Low normal LVEF 50%, tr MR, TR 1. CAD s/p NSTEMI 2. PAF with RVR-> SR 3. ? Syncope vs. mechanical fall 4. HTN 5. Organic brain/dementia 6. Hypercholesterolemia 7. Probable UTI 8. Microalbminuria PLAN: 1. Troponins currently decreasing 2. Agree with Lovenox->Eliquis 5 bid with GI protection 3. Continue Prinivil 40 qd and Amlodipine 5 qd as tolerated 4. Increase Lopressor 50 bid and uptitrate 5. Plavix 75 qd, d/nitesh ASA once on Eliquis 6. Lipitor 20 qd 7. Echocardiography report noted, f/u holter to confirm arrhythmia burden 8. In view of advanced age, conservative management recommended, consider Lexiscan Myoview as outpatient for risk stratification 9. Empiric antibiotic coverage 10. Judicious hydration
[2019-02-14] MEDS ORDERED: METOPROLOL TARTRATE 25 MG TABLET (FP) PO ONE (11:41)
[2019-02-14] MEDS ORDERED: SODIUM CHLORIDE 1,000 ML IV SCH (12:30)
--- NOTE | 2019-02-14 13:06 | PN ---
Progress Note (short form) - Note Progress Note: no chest pain No SOB feels well seems same Vital Signs - 24 hr 02/13/19 02/13/19 02/13/19 13:36 14:20 18:00 Temperature 98.8 F 99.4 F Pulse Rate 108 H 87 Respiratory 17 16 16 Rate Blood Pressure 152/81 146/75 O2 Sat by Pulse 94 L Oximetry (%) 02/13/19 02/13/19 02/14/19 20:21 22:05 02:00 Temperature 98.1 F 97.8 F Pulse Rate 107 H 87 Respiratory 16 18 18 Rate Blood Pressure 154/95 149/78 O2 Sat by Pulse 96 Oximetry (%) 02/14/19 02/14/19 02/14/19 05:39 08:39 09:00 Temperature 98.4 F 98.4 F Pulse Rate 103 H 95 H Respiratory 19 20 20 Rate Blood Pressure 148/101 H 161/85 O2 Sat by Pulse 96 Oximetry (%) Current Medications Generic Name Dose Route Start Last Admin Trade Name Freq PRN Reason Stop Dose Admin Amlodipine Besylate 10 mg 02/13/19 13:05 02/14/19 09:44 Norvasc - PO 10 mg DAILY JUNIE Administration Apixaban 5 mg 02/13/19 22:00 02/14/19 09:45 Eliquis - PO 5 mg BID JUNIE Administration Atorvastatin Calcium 20 mg 02/12/19 22:00 02/13/19 21:59 Lipitor - PO 20 mg HS JUNIE Administration Clopidogrel Bisulfate 75 mg 02/13/19 11:00 02/14/19 09:44 Plavix - PO 75 mg DAILY JUNIE Administration Sodium Chloride 1,000 mls @ 60 mls/hr 02/12/19 05:00 02/13/19 06:57 Normal Saline - IV 60 mls/hr ASDIR JUNIE Administration Ceftriaxone Sodium 1 gm/ 50 mls @ 100 mls/hr 02/12/19 13:41 02/14/19 09:00 Dextrose IVPB 100 mls/hr DAILY@0800 JUNIE Administration Sodium Chloride 1,000 mls @ 75 mls/hr 02/14/19 12:30 Normal Saline - IV ASDIR JUNIE Lisinopril 40 mg 02/12/19 10:00 02/14/19 09:45 Prinivil PO 40 mg DAILY JUNIE Administration Metoprolol Tartrate 50 mg 02/14/19 11:41 Lopressor - PO BID JUNIE Ranitidine HCl 300 mg 02/12/19 10:00 02/14/19 09:45 Zantac - PO 300 mg DAILY JUNIE Administration Laboratory Results - last 24 hr 02/14/19 02/14/19 05:10 05:10 WBC 7.5 RBC 4.55 Hgb 14.4 Hct 41.6 MCV 91.3 MCH 31.7 MCHC 34.7 RDW 13.4 Plt Count 247 MPV 8.4 Sodium 138 Potassium 3.8 Chloride 102 Carbon Dioxide 27 Anion Gap 9 BUN 10.5 Creatinine 0.6 Est GFR (CKD-EPI)AfAm 94.32 Est GFR (CKD-EPI)NonAf 81.38 Random Glucose 118 H Calcium 9.6 Creatine Kinase 590 H Creatine Kinase Index 1.3 CK-MB (CK-2) 8.0 H Troponin I 2.57 H* S1 S2 Irregular Lungs decreased Abd- soft, NT No edema PLAN IV antibiotics for UTI urine cultures not done Iv fluids--continue trend CPK cardiology eval noted Cardiac enzymes trending down on Eliquis and Plavix medical management for now Problem List - Problems (1) Dementia Code(s): F03.90 - UNSPECIFIED DEMENTIA WITHOUT BEHAVIORAL DISTURBANCE (2) Elevated troponin Code(s): R74.8 - ABNORMAL LEVELS OF OTHER SERUM ENZYMES (3) Fall at home Code(s): W19.XXXA - UNSPECIFIED FALL, INITIAL ENCOUNTER; Y92.009 - UNSP PLACE IN UNSP NON-INSTITUT (PRIVATE) RESIDENCE PLACE Qualifiers: Encounter type: subsequent encounter Qualified Code(s): W19.XXXD - Unspecified fall, subsequent encounter; Y92.009 - Unspecified place in unspecified non-institutional (private) residence as the place of occurrence of the external cause (4) HTN (hypertension) Code(s): I10 - ESSENTIAL (PRIMARY) HYPERTENSION Qualifiers: Hypertension type: essential hypertension Qualified Code(s): I10 - Essential (primary) hypertension (5) Hypercholesterolemia Code(s): E78.00 - PURE HYPERCHOLESTEROLEMIA, UNSPECIFIED (6) NSTEMI (non-ST elevated myocardial infarction) Code(s): I21.4 - NON-ST ELEVATION (NSTEMI) MYOCARDIAL INFARCTION
--- NOTE | 2019-02-14 15:59 | HOL ---
Hook-up date: 2019-02-13 13:41:00 Duration: 22:17:00 Test Indications: PAF WITH RVR Medications: [id number] QRS complexes 3381 Ventricular ectopics which represent 2 % of total QRS comp. 4317 Supraventricular ectopics which represent 3 % of total QRS comp. * Paced QRS complexs which represent % of total QRS comp. 3 % of Time Classified as Noise VENTRICULAR ECTOPY 2897 Isolated 549 Bigeminal Cycles 147 Couplets 60 Runs 190 Beats in Runs 6 Beats LONGEST at 153 BPM at 07:36:43 2019-02-14 3 Beats FASTEST at 192 BPM at 09:13:28 2019-02-14 SUPRAVENTRICULAR ECTOPY 3305 Isolated 372 Couplets 83 Runs 267 Beats in Runs 10 Beats LONGEST at 150 BPM at 04:17:18 2019-02-14 3 Beats FASTEST at 220 BPM at 07:16:01 2019-02-14 HEART RATES 65 MIN at 00:45:04 2019-02-14 95 AVG 152 MAX at 21:45:57 2019-02-13 LONGEST RR 1.272 secs at 00:26:17 2019-02-14 SCANNED BY ÁLVARO MAGDALENO ON 02/14/19 1. Baseline sr with avg hr 95 and range 65-152. 2. No significant bradycardia/pauses. 3. Frequent pvcs and pacs. 4. Frequent brief atrial runs (longest 10 beats) and brief runs of NSVT (longest 6 beats). 5. No vf, afib, aflutter. 6. No diary submitted. Confirmed by IMELDA SORTO, FRANCISCO ([id number]) on 02/14/2019 3:58:39 PM Referred By: DMITRY BLANCO DR Overread By: FRANCISCO SEGURA MD
[2019-02-14] MEDS: ATORVASTATIN CA 20 MG TABLET (FP) PO SCH (20:59)
[2019-02-14] MEDS: METOPROLOL TARTRATE 50 MG TABLET (FP) PO SCH (20:59)
[2019-02-15 08:07] LABS: BLOOD UREA NITROGEN 11.9 mg/dL (7-18); CALCIUM 9.5 mg/dL (8.5-10.1); CREATININE 0.5 mg/dL (0.55-1.3); POTASSIUM 3.7 mmol/L (3.5-5.1)
[2019-02-15] MEDS ORDERED: cefTRIAXone SODIUM 1 GM VIAL ONE (08:59)
[2019-02-15] MEDS ORDERED: DEXTROSE 5%-WATER - 50 ML IVPB ONE (08:59)
[2019-02-15] MEDS: CEFTRIAXONE 1 GM in DEXTROSE 5%-WATER - 50 ML IVPB SCH (09:45)
[2019-02-15] MEDS: RANITIDINE HCL 150 MG TABLET (FP) PO SCH (09:46)
[2019-02-15] MEDS: amLODIPine BESYLATE 10 MG TABLET (FP) PO SCH (09:46)
[2019-02-15] MEDS: LISINOPRIL 20 MG TABLET (FP) PO SCH (09:46)
[2019-02-15] MEDS: APIXABAN 5 MG TABLET PO SCH (09:46)
[2019-02-15] MEDS: METOPROLOL TARTRATE 50 MG TABLET (FP) PO SCH ×2 (09:46→22:15)
[2019-02-15] MEDS: CLOPIDOGREL BISULFATE 75 MG TABLET (FP) PO SCH (09:46)
--- NOTE | 2019-02-15 11:03 | PN ---
Progress Note (short form) - Note Progress Note: pt seen/ examined chart reviewed awake/ comfortable c/c - itching in back Vital Signs Temp 98.2 F 02/15/19 05:33 Pulse 85 02/15/19 05:33 Resp 18 02/15/19 08:39 BP 155/81 02/15/19 05:33 Pulse Ox 95 02/15/19 08:39 Intake & Output 02/14/19 02/14/19 02/15/19 11:59 23:59 11:59 Intake Total 720 1625 120 Balance 720 1625 120 Intake: IV 720 825 Normal Saline - 1,000 ml 825 @ 75 mls/hr IV ASDIR [facility] Rx#:[id number] SL 720 IVPB 100 Oral 700 120 Other: Voiding Method Diaper Diaper Diaper # Unmeasured Voids Void 3 3 2 Bowel Movement No No # Bowel Movements 1 Active Medications Amlodipine Besylate (Norvasc -) 10 mg PO DAILY [facility] Last Admin: 02/15/19 09:46 Dose: 10 mg Apixaban (Eliquis -) 5 mg PO BID [facility] Last Admin: 02/15/19 09:46 Dose: 5 mg Atorvastatin Calcium (Lipitor -) 20 mg PO HS [facility] Last Admin: 02/14/19 20:59 Dose: 20 mg Clopidogrel Bisulfate (Plavix -) 75 mg PO DAILY [facility] Last Admin: 02/15/19 09:46 Dose: 75 mg Ceftriaxone Sodium 1 gm/ (Dextrose) 50 mls @ 100 mls/hr IVPB DAILY@0800 [facility] Last Admin: 02/15/19 09:45 Dose: 100 mls/hr Sodium Chloride (Normal Saline -) 1,000 mls @ 75 mls/hr IV ASDIR [facility] Last Admin: 02/14/19 17:38 Dose: 75 mls/hr Lisinopril (Prinivil) 40 mg PO DAILY [facility] Last Admin: 02/15/19 09:46 Dose: 40 mg Metoprolol Tartrate (Lopressor -) 50 mg PO BID [facility] Last Admin: 02/15/19 09:46 Dose: 50 mg Ranitidine HCl (Zantac -) 300 mg PO DAILY [facility] Last Admin: 02/15/19 09:46 Dose: 300 mg CBC, BMP 02/14/19 05:10 02/15/19 06:06 Microbiology 02/13/19 17:30 Urine Culture - Final Urine - Urine Clean Catch NO GROWTH OBTAINED Physical Exam Awake/ comfortable S1 S2 Irregular Lungs decreased Abd- soft, NT No edema skin-- back reddness PLAN IV antibiotics urine cultures -ve - send late while on abx Iv fluids--continue trend CPK cardiology eval noted Cardiac enzymes trending down on Eliquis and Plavix medical management for now Lotrimin ointment locally Problem List - Problems (1) Dementia Code(s): F03.90 - UNSPECIFIED DEMENTIA WITHOUT BEHAVIORAL DISTURBANCE (2) Elevated troponin Code(s): R74.8 - ABNORMAL LEVELS OF OTHER SERUM ENZYMES (3) Fall at home Code(s): W19.XXXA - UNSPECIFIED FALL, INITIAL ENCOUNTER; Y92.009 - UNSP PLACE IN UNSP NON-INSTITUT (PRIVATE) RESIDENCE PLACE Qualifiers: Encounter type: subsequent encounter Qualified Code(s): W19.XXXD - Unspecified fall, subsequent encounter; Y92.009 - Unspecified place in unspecified non-institutional (private) residence as the place of occurrence of the external cause (4) HTN (hypertension) Code(s): I10 - ESSENTIAL (PRIMARY) HYPERTENSION Qualifiers: Hypertension type: essential hypertension Qualified Code(s): I10 - Essential (primary) hypertension (5) Hypercholesterolemia Code(s): E78.00 - PURE HYPERCHOLESTEROLEMIA, UNSPECIFIED (6) NSTEMI (non-ST elevated myocardial infarction) Code(s): I21.4 - NON-ST ELEVATION (NSTEMI) MYOCARDIAL INFARCTION
--- NOTE | 2019-02-15 11:31 | PN ---
Progress Note, Physician History of Present Illness: Denies chest pain, dyspnea, near or true syncope or palpitations. No episodes of PAF with RVR documented on holter. She reports chronic GLASS with inclines. - Current Medication List Current Medications: Active Medications Amlodipine Besylate (Norvasc -) 10 mg PO DAILY [facility] Last Admin: 02/15/19 09:46 Dose: 10 mg Apixaban (Eliquis -) 5 mg PO BID [facility] Last Admin: 02/15/19 09:46 Dose: 5 mg Atorvastatin Calcium (Lipitor -) 20 mg PO HS [facility] Last Admin: 02/14/19 20:59 Dose: 20 mg Clopidogrel Bisulfate (Plavix -) 75 mg PO DAILY [facility] Last Admin: 02/15/19 09:46 Dose: 75 mg Clotrimazole (Lotrimin 1% Cream -) 1 applic TP BID [facility] Ceftriaxone Sodium 1 gm/ (Dextrose) 50 mls @ 100 mls/hr IVPB DAILY@0800 [facility] Last Admin: 02/15/19 09:45 Dose: 100 mls/hr Sodium Chloride (Normal Saline -) 1,000 mls @ 75 mls/hr IV ASDIR [facility] Last Admin: 02/14/19 17:38 Dose: 75 mls/hr Lisinopril (Prinivil) 40 mg PO DAILY [facility] Last Admin: 02/15/19 09:46 Dose: 40 mg Metoprolol Tartrate (Lopressor -) 50 mg PO BID [facility] Last Admin: 02/15/19 09:46 Dose: 50 mg Ranitidine HCl (Zantac -) 300 mg PO DAILY [facility] Last Admin: 02/15/19 09:46 Dose: 300 mg - Objective Vital Signs: Vital Signs Temperature 98.2 F 02/15/19 05:33 Pulse Rate 85 02/15/19 05:33 Respiratory Rate 18 02/15/19 08:39 Blood Pressure 155/81 02/15/19 05:33 O2 Sat by Pulse Oximetry (%) 95 02/15/19 08:39 Constitutional: Yes: No Distress, Calm Neck: Yes: Supple Cardiovascular: Yes: Regular Rate and Rhythm Respiratory: Yes: Regular, CTA Bilaterally Gastrointestinal: Yes: Normal Bowel Sounds, Soft Edema: No Labs: CBC, BMP 02/14/19 05:10 02/15/19 06:06 Problem List - Problems (1) Elevated troponin Code(s): R74.8 - ABNORMAL LEVELS OF OTHER SERUM ENZYMES (2) Fall at home Code(s): W19.XXXA - UNSPECIFIED FALL, INITIAL ENCOUNTER; Y92.009 - UNSP PLACE IN UNSP NON-INSTITUT (PRIVATE) RESIDENCE PLACE Qualifiers: Encounter type: subsequent encounter Qualified Code(s): W19.XXXD - Unspecified fall, subsequent encounter; Y92.009 - Unspecified place in unspecified non-institutional (private) residence as the place of occurrence of the external cause (3) HTN (hypertension) Code(s): I10 - ESSENTIAL (PRIMARY) HYPERTENSION Qualifiers: Hypertension type: essential hypertension Qualified Code(s): I10 - Essential (primary) hypertension (4) Hypercholesterolemia Code(s): E78.00 - PURE HYPERCHOLESTEROLEMIA, UNSPECIFIED (5) NSTEMI (non-ST elevated myocardial infarction) Code(s): I21.4 - NON-ST ELEVATION (NSTEMI) MYOCARDIAL INFARCTION Assessment/Plan 02/12/2019 Echo: Low normal LVEF 50%, tr MR, TR 02/13/2019 Holter: NSR @ 95, range 65-152, no sig bradycardia/pauses, freq PVC, PAC, freq brief atrial runs (longest 10 beats), bried NSVT (longest 6 beats), no VF, afib, aflutter 1. CAD s/p NSTEMI 2. ? Syncope vs. mechanical fall 3. HTN 4. Organic brain/dementia 5. Hypercholesterolemia 6. Probable UTI 7. Microalbminuria PLAN: 1. Troponins currently decreasing 2. Holter excluded PAF 3. Continue Prinivil 40 qd and Amlodipine 5 qd as tolerated 4. Continue Lopressor 50 bid and uptitrate 5. Plavix 75 qd, Lipitor 20 qd, change Eliquis to ASA 81 qd in absence of PAF on Holter 6. In view of advanced age, conservative management recommended, consider Lexiscan Myoview as outpatient for risk stratification 7. Empiric antibiotic coverage 8. D/c hydration, DVT and GI prophylaxis
[2019-02-15] MEDS: CLOTRIMAZOLE 1% CREAM 15 GM TUBE TP SCH ×2 (13:19→22:16)
[2019-02-15] MEDS: ATORVASTATIN CA 20 MG TABLET (FP) PO SCH (22:15)
[2019-02-16] MEDS ORDERED: PT OWN MED DRAWER 7, Y5N ONE (09:51)
[2019-02-16] MEDS ORDERED: DEXTROSE 5%-WATER - 50 ML IVPB ONE (09:52)
[2019-02-16] MEDS ORDERED: cefTRIAXone SODIUM 1 GM VIAL ONE (09:52)
[2019-02-16] MEDS: CEFTRIAXONE 1 GM in DEXTROSE 5%-WATER - 50 ML IVPB SCH (09:55)
[2019-02-16] MEDS: CLOTRIMAZOLE 1% CREAM 15 GM TUBE TP SCH ×2 (09:55→21:59)
[2019-02-16] MEDS: LISINOPRIL 20 MG TABLET (FP) PO SCH (09:55)
[2019-02-16] MEDS: METOPROLOL TARTRATE 50 MG TABLET (FP) PO SCH ×2 (09:56→21:59)
[2019-02-16] MEDS: amLODIPine BESYLATE 10 MG TABLET (FP) PO SCH (09:56)
[2019-02-16] MEDS: ASPIRIN 81 MG CHEWABLE TABLETS PO SCH (09:56)
[2019-02-16] MEDS: CLOPIDOGREL BISULFATE 75 MG TABLET (FP) PO SCH (09:56)
[2019-02-16] MEDS: ENOXAPARIN NA (PORCINE) 40 MG/0.4 ML DISP.SYRIN SQ SCH (09:56)
[2019-02-16] MEDS: RANITIDINE HCL 150 MG TABLET (FP) PO SCH (09:59)
--- NOTE | 2019-02-16 15:12 | PN ---
Progress Note (short form) - Note Progress Note: awake and comfortable. No complaints. feels much better Vital Signs Temp 97.3 F L 02/16/19 14:21 Pulse 96 H 02/16/19 14:21 Resp 20 02/16/19 14:21 BP 152/74 02/16/19 14:21 Pulse Ox 95 02/15/19 21:00 Intake & Output 02/15/19 02/16/19 02/16/19 23:59 11:59 23:59 Intake Total 820 120 Balance 820 120 Intake: IV 10 SL 10 Oral 810 120 Other: Voiding Method Incontinent Incontinent # Unmeasured Voids Void 1 2 Bowel Movement No Active Medications Amlodipine Besylate (Norvasc -) 10 mg PO DAILY [facility] Last Admin: 02/16/19 09:56 Dose: 10 mg Aspirin (Asa -) 81 mg PO DAILY [facility] Last Admin: 02/16/19 09:56 Dose: 81 mg Atorvastatin Calcium (Lipitor -) 20 mg PO HS [facility] Last Admin: 02/15/19 22:15 Dose: 20 mg Clopidogrel Bisulfate (Plavix -) 75 mg PO DAILY [facility] Last Admin: 02/16/19 09:56 Dose: 75 mg Clotrimazole (Lotrimin 1% Cream -) 1 applic TP BID [facility] Last Admin: 02/16/19 09:55 Dose: 1 applic Enoxaparin Sodium (Lovenox -) 40 mg SQ DAILY [facility] Last Admin: 02/16/19 09:56 Dose: 40 mg Ceftriaxone Sodium 1 gm/ (Dextrose) 50 mls @ 100 mls/hr IVPB DAILY@0800 [facility] Last Admin: 02/16/19 09:55 Dose: 100 mls/hr Lisinopril (Prinivil) 40 mg PO DAILY [facility] Last Admin: 02/16/19 09:55 Dose: 40 mg Metoprolol Tartrate (Lopressor -) 50 mg PO BID [facility] Last Admin: 02/16/19 09:56 Dose: 50 mg Ranitidine HCl (Zantac -) 300 mg PO DAILY [facility] Last Admin: 02/16/19 09:59 Dose: 300 mg CBC,CMP WBC 7.5 K/mm3 (4.0-10.0) 02/14/19 05:10 RBC 4.55 M/mm3 (3.60-5.2) 02/14/19 05:10 Hgb 14.4 GM/dL (10.7-15.3) 02/14/19 05:10 Hct 41.6 % (32.4-45.2) 02/14/19 05:10 MCV 91.3 fl (80-96) 02/14/19 05:10 MCH 31.7 pg (25.7-33.7) 02/14/19 05:10 MCHC 34.7 g/dl (32.0-36.0) 02/14/19 05:10 RDW 13.4 % (11.6-15.6) 02/14/19 05:10 Plt Count 247 K/MM3 (134-434) 02/14/19 05:10 MPV 8.4 fl (7.5-11.1) 02/14/19 05:10 Absolute Neuts (auto) 7.9 K/mm3 (1.5-8.0) 02/12/19 06:00 Neutrophils % 79.9 % (42.8-82.8) 02/12/19 06:00 Lymphocytes % 11.6 % (8-40) 02/12/19 06:00 Monocytes % 8.0 % (3.8-10.2) 02/12/19 06:00 Eosinophils % 0.2 % (0-4.5) D 02/12/19 06:00 Basophils % 0.3 % (0-2.0) 02/12/19 06:00 Nucleated RBC % 0 % (0-0) 02/12/19 06:00 Sodium 138 mmol/L (136-145) 02/15/19 06:06 Potassium 3.7 mmol/L (3.5-5.1) 02/15/19 06:06 Chloride 103 mmol/L (98-107) 02/15/19 06:06 Carbon Dioxide 26 mmol/L (21-32) 02/15/19 06:06 Anion Gap 8 MMOL/L (8-16) 02/15/19 06:06 BUN 11.9 mg/dL (7-18) 02/15/19 06:06 Creatinine 0.5 mg/dL (0.55-1.3) L 02/15/19 06:06 Est GFR (CKD-EPI)AfAm 100.15 02/15/19 06:06 Est GFR (CKD-EPI)NonAf 86.41 02/15/19 06:06 Random Glucose 99 mg/dL (74-106) 02/15/19 06:06 Calcium 9.5 mg/dL (8.5-10.1) 02/15/19 06:06 Phosphorus 2.6 mg/dL (2.5-4.9) 02/12/19 06:00 Magnesium 1.4 mg/dL (1.8-2.4) L 02/12/19 06:00 Total Bilirubin 0.6 mg/dL (0.2-1) 02/13/19 05:10 AST 102 U/L (15-37) H 02/13/19 05:10 ALT 47 U/L (13-61) 02/13/19 05:10 Alkaline Phosphatase 75 U/L (45-117) 02/13/19 05:10 Creatine Kinase 385 U/L (26-192) H 02/15/19 06:06 Creatine Kinase Index 2.2 % (0.0-5.0) 02/15/19 06:06 CK-MB (CK-2) 8.5 ng/mL (0.5-3.6) H 02/15/19 06:06 Troponin I 2.16 ng/ml (0.00-0.05) H* 02/15/19 06:06 Total Protein 6.4 g/dl (6.4-8.2) 02/13/19 05:10 Albumin 3.6 g/dl (3.4-5.0) 02/13/19 05:10 Triglycerides 168 mg/dL (0-150) H 02/13/19 05:10 Cholesterol 177 mg/dL (50-200) 02/13/19 05:10 Total LDL Cholesterol 121 mg/dL (5-100) H 02/13/19 05:10 HDL Cholesterol 34 mg/dL (40-60) L 02/13/19 05:10 TSH 1.90 uIU/ml (0.358-3.74) 02/13/19 05:10 Physical Exam Awake/ comfortable S1 S2 Irregular Lungs decreased Abd- soft, NT No edema skin-- back reddness --Better PLAN IV antibiotics urine cultures -ve - send late while on abx Iv fluids--discontinue trend CPK--improving cardiology eval noted Cardiac enzymes trending down on aspirin and Plavix Eliquis discontinued medical management for now Lotrimin ointment locally clinically stable discharge planning----Medically stable for discharge Discussed with nursing staff----awaiting authorization----from insurance for short-term rehabilitation Problem List - Problems (1) Dementia Code(s): F03.90 - UNSPECIFIED DEMENTIA WITHOUT BEHAVIORAL DISTURBANCE (2) Elevated troponin Code(s): R74.8 - ABNORMAL LEVELS OF OTHER SERUM ENZYMES (3) Fall at home Code(s): W19.XXXA - UNSPECIFIED FALL, INITIAL ENCOUNTER; Y92.009 - UNSP PLACE IN UNSP NON-INSTITUT (PRIVATE) RESIDENCE PLACE Qualifiers: Encounter type: subsequent encounter Qualified Code(s): W19.XXXD - Unspecified fall, subsequent encounter; Y92.009 - Unspecified place in unspecified non-institutional (private) residence as the place of occurrence of the external cause (4) HTN (hypertension) Code(s): I10 - ESSENTIAL (PRIMARY) HYPERTENSION Qualifiers: Hypertension type: essential hypertension Qualified Code(s): I10 - Essential (primary) hypertension (5) Hypercholesterolemia Code(s): E78.00 - PURE HYPERCHOLESTEROLEMIA, UNSPECIFIED (6) NSTEMI (non-ST elevated myocardial infarction) Code(s): I21.4 - NON-ST ELEVATION (NSTEMI) MYOCARDIAL INFARCTION
[2019-02-16] MEDS: ATORVASTATIN CA 20 MG TABLET (FP) PO SCH (21:59)
[2019-02-17] MEDS: CEFTRIAXONE 1 GM in DEXTROSE 5%-WATER - 50 ML IVPB SCH (08:50)
[2019-02-17] MEDS ORDERED: cefTRIAXone SODIUM 1 GM VIAL ONE (09:24)
[2019-02-17] MEDS ORDERED: DEXTROSE 5%-WATER - 50 ML IVPB ONE (09:24)
[2019-02-17] MEDS: LISINOPRIL 20 MG TABLET (FP) PO SCH (09:27)
[2019-02-17] MEDS: RANITIDINE HCL 150 MG TABLET (FP) PO SCH (09:27)
[2019-02-17] MEDS: ASPIRIN 81 MG CHEWABLE TABLETS PO SCH (09:27)
[2019-02-17] MEDS: METOPROLOL TARTRATE 50 MG TABLET (FP) PO SCH ×2 (09:28→21:03)
[2019-02-17] MEDS: amLODIPine BESYLATE 10 MG TABLET (FP) PO SCH (09:28)
[2019-02-17] MEDS: ENOXAPARIN NA (PORCINE) 40 MG/0.4 ML DISP.SYRIN SQ SCH (09:28)
[2019-02-17] MEDS: CLOPIDOGREL BISULFATE 75 MG TABLET (FP) PO SCH (09:28)
[2019-02-17] MEDS: CLOTRIMAZOLE 1% CREAM 15 GM TUBE TP SCH ×2 (09:29→21:04)
--- NOTE | 2019-02-17 12:41 | PN ---
Progress Note (short form) - Note Progress Note: awake/ comfortable no complains Vital Signs Temp 98.1 F 02/17/19 10:00 Pulse 102 H 02/17/19 10:00 Resp 20 02/17/19 10:00 BP 160/75 02/17/19 10:00 Pulse Ox 96 02/17/19 08:28 Intake & Output 02/16/19 02/17/19 02/17/19 23:59 11:59 23:59 Intake Total 420 50 Balance 420 50 Intake: Oral 420 50 Other: Voiding Method Incontinent Incontinent # Unmeasured Voids Void 1 Bowel Movement No Active Medications Amlodipine Besylate (Norvasc -) 10 mg PO DAILY [facility] Last Admin: 02/17/19 09:28 Dose: 10 mg Aspirin (Asa -) 81 mg PO DAILY [facility] Last Admin: 02/17/19 09:27 Dose: 81 mg Atorvastatin Calcium (Lipitor -) 20 mg PO HS [facility] Last Admin: 02/16/19 21:59 Dose: 20 mg Clopidogrel Bisulfate (Plavix -) 75 mg PO DAILY [facility] Last Admin: 02/17/19 09:28 Dose: 75 mg Clotrimazole (Lotrimin 1% Cream -) 1 applic TP BID [facility] Last Admin: 02/17/19 09:29 Dose: 1 applic Enoxaparin Sodium (Lovenox -) 40 mg SQ DAILY [facility] Last Admin: 02/17/19 09:28 Dose: 40 mg Ceftriaxone Sodium 1 gm/ (Dextrose) 50 mls @ 100 mls/hr IVPB DAILY@0800 [facility] Last Admin: 02/17/19 08:50 Dose: 100 mls/hr Lisinopril (Prinivil) 40 mg PO DAILY [facility] Last Admin: 02/17/19 09:27 Dose: 40 mg Metoprolol Tartrate (Lopressor -) 50 mg PO BID [facility] Last Admin: 02/17/19 09:28 Dose: 50 mg Ranitidine HCl (Zantac -) 300 mg PO DAILY [facility] Last Admin: 02/17/19 09:27 Dose: 300 mg CBC, BMP 02/14/19 05:10 02/15/19 06:06 Physical Exam Awake/ comfortable S1 S2 Irregular Lungs decreased Abd- soft, NT No edema skin-- back reddness --Better PLAN IV antibiotics urine cultures -ve - send late while on abx Iv fluids--discontinue trend CPK--improving cardiology raphael noted Cardiac enzymes trending down on aspirin and Plavix Elicassi discontinued medical management for now Lotrimin ointment locally clinically stable discharge planning----Medically stable for discharge Discussed with nursing staff----awaiting authorization----from insurance for short-term rehabilitation Problem List - Problems (1) Dementia Code(s): F03.90 - UNSPECIFIED DEMENTIA WITHOUT BEHAVIORAL DISTURBANCE (2) Elevated troponin Code(s): R74.8 - ABNORMAL LEVELS OF OTHER SERUM ENZYMES (3) Fall at home Code(s): W19.XXXA - UNSPECIFIED FALL, INITIAL ENCOUNTER; Y92.009 - UNSP PLACE IN UNSP NON-INSTITUT (PRIVATE) RESIDENCE PLACE Qualifiers: Encounter type: subsequent encounter Qualified Code(s): W19.XXXD - Unspecified fall, subsequent encounter; Y92.009 - Unspecified place in unspecified non-institutional (private) residence as the place of occurrence of the external cause (4) HTN (hypertension) Code(s): I10 - ESSENTIAL (PRIMARY) HYPERTENSION Qualifiers: Hypertension type: essential hypertension Qualified Code(s): I10 - Essential (primary) hypertension (5) Hypercholesterolemia Code(s): E78.00 - PURE HYPERCHOLESTEROLEMIA, UNSPECIFIED (6) NSTEMI (non-ST elevated myocardial infarction) Code(s): I21.4 - NON-ST ELEVATION (NSTEMI) MYOCARDIAL INFARCTION
[2019-02-17] MEDS: ATORVASTATIN CA 20 MG TABLET (FP) PO SCH (21:03)
--- NOTE | 2019-02-18 06:03 | PN ---
Progress Note, Physician Chief Complaint: Pt pleasant; disoriented to time and place; asymptomatic. History of Present Illness: 88 yo white female found on the floor by her son at 7 AM today. He found her laying on top of a blanket on the floor. The patient doesn't recall any events leading to her being on the floor - Current Medication List Current Medications: Active Medications Amlodipine Besylate (Norvasc -) 10 mg PO DAILY [facility] Last Admin: 02/17/19 09:28 Dose: 10 mg Aspirin (Asa -) 81 mg PO DAILY [facility] Last Admin: 02/17/19 09:27 Dose: 81 mg Atorvastatin Calcium (Lipitor -) 20 mg PO HS [facility] Last Admin: 02/17/19 21:03 Dose: 20 mg Clopidogrel Bisulfate (Plavix -) 75 mg PO DAILY [facility] Last Admin: 02/17/19 09:28 Dose: 75 mg Clotrimazole (Lotrimin 1% Cream -) 1 applic TP BID [facility] Last Admin: 02/17/19 21:04 Dose: 1 applic Enoxaparin Sodium (Lovenox -) 40 mg SQ DAILY [facility] Last Admin: 02/17/19 09:28 Dose: 40 mg Ceftriaxone Sodium 1 gm/ (Dextrose) 50 mls @ 100 mls/hr IVPB DAILY@0800 [facility] Last Admin: 02/17/19 08:50 Dose: 100 mls/hr Lisinopril (Prinivil) 40 mg PO DAILY [facility] Last Admin: 02/17/19 09:27 Dose: 40 mg Metoprolol Tartrate (Lopressor -) 50 mg PO BID [facility] Last Admin: 02/17/19 21:03 Dose: 50 mg Ranitidine HCl (Zantac -) 300 mg PO DAILY [facility] Last Admin: 02/17/19 09:27 Dose: 300 mg - Objective Vital Signs: Vital Signs Temperature 98.0 F 02/18/19 02:00 Pulse Rate 74 02/18/19 02:00 Respiratory Rate 18 02/18/19 02:00 Blood Pressure 145/68 02/18/19 02:00 O2 Sat by Pulse Oximetry (%) 94 L 02/17/19 21:00 Constitutional: Yes: Calm Eyes: Yes: WNL HENT: Yes: WNL Neck: Yes: WNL Cardiovascular: Yes: S1, S2 Gastrointestinal: Yes: Soft ...Rectal Exam: Yes: Deferred Genitourinary: No: Anuria Breast(s): Yes: WNL Musculoskeletal: Yes: Muscle Weakness Extremities: Yes: WNL Edema: No Peripheral Pulses WNL: Yes Integumentary: Yes: WNL Neurological: Yes: Weakness Psychiatric: Yes: Other (dementia) Labs: CBC, BMP 02/14/19 05:10 02/15/19 06:06 Problem List - Problems (1) Fall at home Code(s): W19.XXXA - UNSPECIFIED FALL, INITIAL ENCOUNTER; Y92.009 - UNSP PLACE IN UNSP NON-INSTITUT (PRIVATE) RESIDENCE PLACE Qualifiers: Encounter type: subsequent encounter Qualified Code(s): W19.XXXD - Unspecified fall, subsequent encounter; Y92.009 - Unspecified place in unspecified non-institutional (private) residence as the place of occurrence of the external cause (2) NSTEMI (non-ST elevated myocardial infarction) Assessment/Plan: Continue ASA and clopidogrel. On atorvastatin, metoprolol, lisinopril, and amlodipine. ECHO: LVEF 50%. Code(s): I21.4 - NON-ST ELEVATION (NSTEMI) MYOCARDIAL INFARCTION (3) UTI (urinary tract infection) Assessment/Plan: Sntibiotics per ID. Code(s): N39.0 - URINARY TRACT INFECTION, SITE NOT SPECIFIED Qualifiers: Urinary tract infection type: site unspecified Hematuria presence: without hematuria Qualified Code(s): N39.0 - Urinary tract infection, site not specified (4) Dementia Code(s): F03.90 - UNSPECIFIED DEMENTIA WITHOUT BEHAVIORAL DISTURBANCE
[2019-02-18] MEDS: CEFTRIAXONE 1 GM in DEXTROSE 5%-WATER - 50 ML IVPB SCH (08:50)
[2019-02-18] MEDS ORDERED: cefTRIAXone SODIUM 1 GM VIAL ONE (09:03)
[2019-02-18] MEDS ORDERED: DEXTROSE 5%-WATER - 50 ML IVPB ONE (09:03)
[2019-02-18] MEDS: CLOPIDOGREL BISULFATE 75 MG TABLET (FP) PO SCH (09:52)
[2019-02-18] MEDS: ENOXAPARIN NA (PORCINE) 40 MG/0.4 ML DISP.SYRIN SQ SCH (09:52)
[2019-02-18] MEDS: ASPIRIN 81 MG CHEWABLE TABLETS PO SCH (09:52)
[2019-02-18] MEDS: LISINOPRIL 20 MG TABLET (FP) PO SCH (09:52)
[2019-02-18] MEDS: RANITIDINE HCL 150 MG TABLET (FP) PO SCH (09:52)
[2019-02-18] MEDS: METOPROLOL TARTRATE 50 MG TABLET (FP) PO SCH (09:52)
[2019-02-18] MEDS: amLODIPine BESYLATE 10 MG TABLET (FP) PO SCH (09:52)
[2019-02-18] MEDS: CLOTRIMAZOLE 1% CREAM 15 GM TUBE TP SCH (09:55)
--- NOTE | 2019-02-18 10:49 | PN ---
Progress Note (short form) - Note Progress Note: comfortable no new issues feels ok Vital Signs Temp 97.5 F L 02/18/19 06:24 Pulse 83 02/18/19 06:24 Resp 18 02/18/19 09:00 BP 145/99 02/18/19 06:24 Pulse Ox 95 02/18/19 09:00 Intake & Output 02/17/19 02/17/19 02/18/19 11:59 23:59 11:59 Intake Total 50 1000 Balance 50 1000 Intake: IVPB 50 Oral 50 950 Other: Voiding Method Incontinent Incontinent Incontinent # Unmeasured Voids Void 1 1 Bowel Movement No Active Medications Amlodipine Besylate (Norvasc -) 10 mg PO DAILY [facility] Last Admin: 02/18/19 09:52 Dose: 10 mg Aspirin (Asa -) 81 mg PO DAILY [facility] Last Admin: 02/18/19 09:52 Dose: 81 mg Atorvastatin Calcium (Lipitor -) 20 mg PO HS [facility] Last Admin: 02/17/19 21:03 Dose: 20 mg Clopidogrel Bisulfate (Plavix -) 75 mg PO DAILY [facility] Last Admin: 02/18/19 09:52 Dose: 75 mg Clotrimazole (Lotrimin 1% Cream -) 1 applic TP BID [facility] Last Admin: 02/18/19 09:55 Dose: 1 applic Enoxaparin Sodium (Lovenox -) 40 mg SQ DAILY [facility] Last Admin: 02/18/19 09:52 Dose: 40 mg Ceftriaxone Sodium 1 gm/ (Dextrose) 50 mls @ 100 mls/hr IVPB DAILY@0800 [facility] Last Admin: 02/18/19 08:50 Dose: 100 mls/hr Lisinopril (Prinivil) 40 mg PO DAILY [facility] Last Admin: 02/18/19 09:52 Dose: 40 mg Metoprolol Tartrate (Lopressor -) 50 mg PO BID [facility] Last Admin: 02/18/19 09:52 Dose: 50 mg Ranitidine HCl (Zantac -) 300 mg PO DAILY [facility] Last Admin: 02/18/19 09:52 Dose: 300 mg CBC, BMP 02/14/19 05:10 02/15/19 06:06 Physical Exam Awake/ comfortable S1 S2 Irregular Lungs decreased Abd- soft, NT No edema skin-- back reddness --Better PLAN IV antibiotics urine cultures -ve - send late while on abx Iv fluids--discontinue trend CPK--improving cardiology eval noted Cardiac enzymes trending down on aspirin and Plavix Eliquis discontinued medical management for now Lotrimin ointment locally clinically stable discharge planning----Medically stable for discharge Discussed with nursing staff----awaiting authorization----from insurance for short-term rehabilitation Problem List - Problems (1) Dementia Code(s): F03.90 - UNSPECIFIED DEMENTIA WITHOUT BEHAVIORAL DISTURBANCE (2) Elevated troponin Code(s): R74.8 - ABNORMAL LEVELS OF OTHER SERUM ENZYMES (3) Fall at home Code(s): W19.XXXA - UNSPECIFIED FALL, INITIAL ENCOUNTER; Y92.009 - UNSP PLACE IN UNSP NON-INSTITUT (PRIVATE) RESIDENCE PLACE Qualifiers: Encounter type: subsequent encounter Qualified Code(s): W19.XXXD - Unspecified fall, subsequent encounter; Y92.009 - Unspecified place in unspecified non-institutional (private) residence as the place of occurrence of the external cause (4) HTN (hypertension) Code(s): I10 - ESSENTIAL (PRIMARY) HYPERTENSION Qualifiers: Hypertension type: essential hypertension Qualified Code(s): I10 - Essential (primary) hypertension (5) Hypercholesterolemia Code(s): E78.00 - PURE HYPERCHOLESTEROLEMIA, UNSPECIFIED (6) NSTEMI (non-ST elevated myocardial infarction) Code(s): I21.4 - NON-ST ELEVATION (NSTEMI) MYOCARDIAL INFARCTION
--- NOTE | 2019-02-18 11:45 | PN ---
Progress Note, Physician History of Present Illness: Denies chest pain, dyspnea, near or true syncope or palpitations. No episodes of PAF with RVR documented on holter. She reports chronic GLASS with inclines. - Current Medication List Current Medications: Active Medications Amlodipine Besylate (Norvasc -) 10 mg PO DAILY [facility] [place] Last Admin: 02/18/19 09:52 Dose: 10 mg Aspirin (Asa -) 81 mg PO DAILY [facility] [place] Last Admin: 02/18/19 09:52 Dose: 81 mg Atorvastatin Calcium (Lipitor -) 20 mg PO HS [facility] [place] Last Admin: 02/17/19 21:03 Dose: 20 mg Clopidogrel Bisulfate (Plavix -) 75 mg PO DAILY [facility] [place] Last Admin: 02/18/19 09:52 Dose: 75 mg Clotrimazole (Lotrimin 1% Cream -) 1 applic TP BID [facility] [place] Last Admin: 02/18/19 09:55 Dose: 1 applic Enoxaparin Sodium (Lovenox -) 40 mg SQ DAILY [facility] [place] Last Admin: 02/18/19 09:52 Dose: 40 mg Ceftriaxone Sodium 1 gm/ (Dextrose) 50 mls @ 100 mls/hr IVPB DAILY@0800 [facility] [place] Last Admin: 02/18/19 08:50 Dose: 100 mls/hr Lisinopril (Prinivil) 40 mg PO DAILY [facility] [place] Last Admin: 02/18/19 09:52 Dose: 40 mg Metoprolol Tartrate (Lopressor -) 50 mg PO BID [facility] [place] Last Admin: 02/18/19 09:52 Dose: 50 mg Ranitidine HCl (Zantac -) 300 mg PO DAILY [facility] [place] Last Admin: 02/18/19 09:52 Dose: 300 mg - Objective Vital Signs: Vital Signs Temperature 97.5 F L 02/18/19 06:24 Pulse Rate 83 02/18/19 06:24 Respiratory Rate 18 02/18/19 09:00 Blood Pressure 145/99 02/18/19 06:24 O2 Sat by Pulse Oximetry (%) 95 02/18/19 09:00 Constitutional: Yes: No Distress, Calm Neck: Yes: Supple Cardiovascular: Yes: Regular Rate and Rhythm Respiratory: Yes: Regular, CTA Bilaterally Gastrointestinal: Yes: Soft, Hypoactive Bowel Sounds Edema: No Labs: CBC, BMP 02/14/19 05:10 02/15/19 06:06 - ....Imaging EKG: Report Reviewed (Tele: NSR with PAC) Problem List - Problems (1) Elevated troponin Code(s): R74.8 - ABNORMAL LEVELS OF OTHER SERUM ENZYMES (2) Fall at home Code(s): W19.XXXA - UNSPECIFIED FALL, INITIAL ENCOUNTER; Y92.009 - UNSP PLACE IN UNSP NON-INSTITUT (PRIVATE) RESIDENCE PLACE Qualifiers: Encounter type: subsequent encounter Qualified Code(s): W19.XXXD - Unspecified fall, subsequent encounter; Y92.009 - Unspecified place in unspecified non-institutional (private) residence as the place of occurrence of the external cause (3) HTN (hypertension) Code(s): I10 - ESSENTIAL (PRIMARY) HYPERTENSION Qualifiers: Hypertension type: essential hypertension Qualified Code(s): I10 - Essential (primary) hypertension (4) Hypercholesterolemia Code(s): E78.00 - PURE HYPERCHOLESTEROLEMIA, UNSPECIFIED (5) NSTEMI (non-ST elevated myocardial infarction) Code(s): I21.4 - NON-ST ELEVATION (NSTEMI) MYOCARDIAL INFARCTION Assessment/Plan 02/12/2019 Echo: Low normal LVEF 50%, tr MR, TR 02/13/2019 Holter: NSR @ 95, range 65-152, no sig bradycardia/pauses, freq PVC, PAC, freq brief atrial runs (longest 10 beats), bried NSVT (longest 6 beats), no VF, afib, aflutter 1. CAD s/p NSTEMI 2. ? Syncope vs. mechanical fall 3. HTN 4. Organic brain/dementia 5. Hypercholesterolemia 6. Probable UTI 7. Microalbminuria PLAN: 1. Troponins currently decreasing 2. Holter excluded PAF 3. Continue Prinivil 40 qd and Amlodipine 10 qd as tolerated 4. Continue Lopressor 50 bid and uptitrate 5. Plavix 75 qd, Lipitor 20 qd, ASA 81 qd in absence of PAF on Holter 6. In view of advanced age, conservative management recommended, consider Lexiscan Myoview as outpatient for risk stratification 7. Complete empiric antibiotic coverage 8. DVT and GI prophylaxis, PT->SNF
[2019-02-18 11:52] VITALS: TEMP 98.1
[2019-02-18 15:22] VITALS: BP 141/68; PULSE 97
== END 2019-02-18 17:58 | DRG 689 ==
LOC: JER 15:57 → JERBED 21:02 → OBSVTOIN 02-12 07:20 → J4S 02-12 15:21
PROVIDERS: ADMIT Internal Medicine; ATTEND Internal Medicine
DX: N39.0 Urinary tract infection, site not specified (principal); I21.4 Non-ST elevation (NSTEMI) myocardial infarction; I47.1 Supraventricular tachycardia; M62.82 Rhabdomyolysis; I10 Essential (primary) hypertension; F03.90 Unspecified dementia, unspecified severity, without behavioral disturbance, psychotic disturbance, mood disturbance, and anxiety; R55 Syncope and collapse; R74.8 Abnormal levels of other serum enzymes; M19.90 Unspecified osteoarthritis, unspecified site; I48.0 Paroxysmal atrial fibrillation; I25.10 Atherosclerotic heart disease of native coronary artery without angina pectoris; E78.00 Pure hypercholesterolemia, unspecified; D72.829 Elevated white blood cell count, unspecified
CPT/HCPCS: 36415; 70450-TC; 71045-TC-FY; 80048; 80053; 80061; 81003; 82550; 82553; 83721; 83735; 84100; 84443; 84484; 85025; 85027; 87086; 93005; 93010; 93225; 93226; 93306-TC; 97116-GP; 97161-GP; 99285-25; G0378; J7030